=== PATIENT | female | born 1985 | race Two or more races ===

== ENCOUNTER → 2016-03-17 | Outpatient (CLI) | payer OTHER ==
--- NOTE | 2016-03-17 11:47 | US ---
EXAMINATION TYPE: US pelvic complete DATE OF EXAM: 03/17/2016 8:41 AM COMPARISON: CT scan abdomen and pelvis third December 2015 CLINICAL HISTORY: uterine fibroids per patient; Pelvic pain with intercourse and intermittently durin g menses; ; tubal ligation, C section x 3; on oral contraceptives x 2 weeks TECHNIQUE: Transabdominal (TA) Date of LMP: 02/10/2016 EXAM MEASUREMENTS: Uterus: 10.2 x 7.9 x 4.8cm Endometrial Stripe: 1.3cm Right Ovary: 2.1 x 1.3 x 1.0cm Left Ovary: 3.1 x 1.7 x 1.8cm FINDINGS: Grayscale, color Doppler imaging performed of the uterus and ovaries. Spectral Doppler imaging perfor med of the ovaries. Vascular waveforms, color flow noted to the right ovary. 1. Uterus: Anteverted the myometrial echotexture is heterogeneous, hypoechoic foci are present, an d the largest at right myometrium = 2.6 x 2.6 x 2.4cm and noted as hypoechoic mixed mass with periphe ral color flow 2. Endometrium: thickness is wnl for day 36LMP 3. Right Ovary: small follicles; 4. Left Ovary: small follicles Spectral, color and waveform doppler imaging shows good arterial and venous flow within the ovaries ; there is no evidence for ovarian torsion. 5. Bilateral Adnexa: wnl 6. Posterior cul-de-sac: wnl as bowel noted peristalsing here IMPRESSION: Fibroid uterus. Normal Values: Uterine Length: < 10cm Endometrium: Proliferative (Day 6 ? 14): 4 ? 6mm Secretory (Day 15 ? 28): 7 ? 14mm Post Menopausal (and not symptomatic): up to 8mm Post Menopausal (with vaginal bleeding): upper limits <5mm Post Menopausal with HRT: upper limits 8 - 15mm Post Menopausal with tamoxifen: < 6mm (although 50% of those receiving tamoxifen have been reported t o have thickness >8mm)
== END | disposition home or self-care (01) ==
LOC: RADUSWWP 08:12
PROVIDERS: ATTEND Family Medicine
DX: D25.9 Leiomyoma of uterus, unspecified (principal); Z88.1 Allergy status to other antibiotic agents; Z88.8 Allergy status to other drugs, medicaments and biological substances
CPT/HCPCS: 76856

== ENCOUNTER 2016-08-19 20:48 | Emergency (ER) | payer OTHER ==
[2016-08-19 20:57] VITALS: BP 134/77; PULSE 85; RESP 16; TEMP 99.8
[2016-08-19 21:24] LABS: Appearance,Urine Clear (Clear); Bacteria,Urine Occasional /hpf; Bilirubin,Urine Negative (Negative); Glucose,Urine (UA) Negative (Negative); Ketones,Urine Negative (Negative); Leukocyte Esterase,Urine Small (Negative); Mucus,Urine Rare /hpf; Nitrite,Urine Negative (Negative); PH, Urine 5.5 (5.0-8.0); Particle Count 7473; Protein,Urine Negative (Negative); RBC,Urine 1 /hpf (0-5); Specific Gravity,Urine 1.017 (1.001-1.035); Squamous Epithelial Cell,Urine 1 /hpf (0-4); UA Billing (MACRO vs. MICRO) MICRO; Urobilinogen,Urine <2.0 mg/dL (<2.0); WBC,Urine 3 /hpf (0-5)
--- NOTE | 2016-08-19 21:45 | ED ---
Female Urogenital HPI - General Chief complaint: Urogenital Stated complaint: Abd Pain Time Seen by Provider: 08/19/16 21:04 Source: patient Mode of arrival: ambulatory Limitations: no limitations - History of Present Illness Initial comments: 30-year-old female presents to emergency Department chief complaint of concern that she is possibly . Patient ports that she had a tubal ligation many years ago. Patient reports she's had symptoms of including breast enlargement, abdominal distention, mild swelling in her feet and feeling nauseated in the morning. Patient reports that her last menstrual cycle was 4 weeks ago. Patient states that she did not take any urine test. Patient denies any dysuria or vaginal discharge. She denies any fever or chills , vomiting or changes in bowel movements. Patient denies any abdominal tenderness. - Related Data Home Medications Medication Instructions Recorded Confirmed Albuterol Sulfate [Ventolin HFA] 1 puff INHALATION RT-QID PRN 12/08/15 08/19/16 Montelukast Sodium [Montelukast 10 mg PO DAILY 12/08/15 08/19/16 Sodium] Multivitamins, Thera [Multivitamin 1 tab PO DAILY 08/19/16 08/19/16 (formulary)] Allergies Allergy/AdvReac Type Severity Reaction Status Date / Time acetaminophen [From Tylenol] Allergy Swelling Verified 08/19/16 21:50 sulfamethoxazole Allergy Rash/Hives Verified 08/19/16 21:50 [From Bactrim] trimethoprim [From Bactrim] Allergy Rash/Hives Verified 08/19/16 21:50 Review of Systems ROS Statement: Those systems with pertinent positive or pertinent negative responses have been documented in the HPI. ROS Other: All systems not noted in ROS Statement are negative. Past Medical History Past Medical History: Asthma History of Any Multi-Drug Resistant Organisms: None Reported Past Surgical History: Section, Orthopedic Surgery, Tubal Ligation Additional Past Surgical History / Comment(s): skin graft Past Psychological History: Anxiety, Bipolar, PTSD Smoking Status: Former smoker Past Alcohol Use History: None Reported Past Drug Use History: None Reported General Exam - General Exam Comments Initial Comments: Well-appearing 30-year-old female. No acute distress. Limitations: no limitations General appearance: alert, in no apparent distress Head exam: Present: atraumatic, normocephalic, normal inspection Eye exam: Present: normal appearance, PERRL, EOMI. Absent: scleral icterus, conjunctival injection, periorbital swelling ENT exam: Present: normal exam, mucous membranes moist Neck exam: Present: normal inspection. Absent: tenderness, meningismus, lymphadenopathy Respiratory exam: Present: normal lung sounds bilaterally. Absent: respiratory distress, wheezes, rales, rhonchi, stridor Cardiovascular Exam: Present: regular rate, normal rhythm, normal heart sounds. Absent: systolic murmur, diastolic murmur, rubs, gallop, clicks GI/Abdominal exam: Present: soft, normal bowel sounds. Absent: distended, tenderness, guarding, rebound, rigid Extremities exam: Present: normal inspection, full ROM, normal capillary refill. Absent: tenderness, pedal edema, joint swelling, calf tenderness Back exam: Present: normal inspection Neurological exam: Present: alert, oriented X3, CN II-XII intact Psychiatric exam: Present: normal affect, normal mood Skin exam: Present: warm, dry, intact, normal color. Absent: rash Course Vital Signs 08/19/16 20:54 Temperature 99.8 F H Pulse Rate 85 Respiratory 16 Rate Blood Pressure 134/77 O2 Sat by Pulse 100 Oximetry Medical Decision Making - Medical Decision Making 30-year-old females concerned that she is possibly . She did have a history of tubal ligation many years ago. Patient states that symptoms of breast enlargement, abdominal enlargement. Patient reports last menstrual cycle was 3 weeks ago. She denies any abdominal tenderness. Physical exam is benign. Urinalysis and urine hCG obtained. Patient's urine hCG is negative. Also is negative for any acute process including UTI. Discussed the results with the patient. Patient states that she is still confused. Discussed that she should follow-up with her primary care provider if symptoms continue to persist. Discussed that she is likely about to start her menstrual cycle due to the fluctuation and hormones she can have breast tenderness and bloating. Patient agrees to treatment plan will comply. Return parameters were discussed. - Lab Data Lab Results 08/19/16 08/19/16 Range/Units 21:10 21:10 Urine Color Yellow Urine Appearance Clear (Clear) Urine pH 5.5 (5.0-8.0) Ur Specific [place] 1.017 (1.001-1.035) Urine Protein Negative (Negative) Urine Glucose (UA) Negative (Negative) Urine Ketones Negative (Negative) Urine Blood Negative (Negative) Urine Nitrite Negative (Negative) Urine Bilirubin Negative (Negative) Urine Urobilinogen <2.0 (<2.0) mg/dL Ur Leukocyte Esterase Small H (Negative) Urine RBC 1 (0-5) /hpf Urine WBC 3 (0-5) /hpf Ur Squamous Epith Cells 1 (0-4) /hpf Urine Bacteria Occasional H (None) /hpf Urine Mucus Rare H (None) /hpf Urine Yeast (Budding) Rare H (None) /hpf Urine HCG, Qual Not Detected (Not Detectd) Disposition Clinical Impression: Not currently Disposition: HOME SELF-CARE Condition: Good Additional Instructions: Follow-up with her primary care provider within the next 2-3 days. Rest, remain hydrated. Return to the emergency department if any alarming signs or symptoms occur. Referrals: Irasema Chandler MD [Primary Care Provider] - 1-2 days Time of Disposition: 21:44
== END 2016-08-19 21:54 | disposition home or self-care (01) ==
LOC: EC 20:48
DX: N62 Hypertrophy of breast (principal); M79.89 Other specified soft tissue disorders; R14.0 Abdominal distension (gaseous); R11.0 Nausea; J45.909 Unspecified asthma, uncomplicated; Z87.891 Personal history of nicotine dependence; Z79.899 Other long term (current) drug therapy; Z88.1 Allergy status to other antibiotic agents; Z88.6 Allergy status to analgesic agent; Z98.51 Tubal ligation status
CPT/HCPCS: 81001; 81025; 99284

== ENCOUNTER 2018-05-08 07:47 | Emergency (ER) | payer OTHER ==
[2018-05-08 07:51] VITALS: BP 128/74; PULSE 84; RESP 18; TEMP 98
[2018-05-08] MEDS ORDERED: PROPARACAINE 0.5% OPHTH DROPS 15 ML BTL RIGHT EYE STA (07:59)
[2018-05-08] MEDS ORDERED: TOBRAMYCIN 0.3% OPHTH DROPS 5 ML BTL RIGHT EYE STA (08:06)
--- NOTE | 2018-05-08 08:09 | ED ---
Eye Problem HPI - General Chief complaint: Eye Problems Stated complaint: Eye pain Time Seen by Provider: 05/08/18 07:54 Source: patient, RN notes reviewed Mode of arrival: ambulatory Limitations: no limitations - History of Present Illness Initial comments: 32-year-old female presented to emergency department for right eye irritation. Patient that she woke up with it's morning. She is not wearing glasses or contacts no blurred vision no pain with ocular movement. Patient states she just feels like something is in her eye. Patient's tetanus is up-to-date. Patient denies any discharge other than mild tearing. - Related Data Home Medications Medication Instructions Recorded Confirmed Albuterol Sulfate [Ventolin HFA] 1 puff INHALATION RT-QID PRN 12/08/15 05/08/18 Montelukast Sodium 10 mg PO HS 12/08/15 05/08/18 Multivitamins, Thera [Multivitamin 1 tab PO DAILY 08/19/16 05/08/18 (formulary)] Ipratropium-Albuterol Nebulize 3 ml INHALATION RT-DAILY PRN 05/08/18 05/08/18 [Duoneb 0.5 mg-3 mg/3 ml Soln] Allergies Allergy/AdvReac Type Severity Reaction Status Date / Time acetaminophen [From Tylenol] Allergy Swelling Verified 05/08/18 07:59 sulfamethoxazole Allergy Rash/Hives Verified 05/08/18 07:59 [From Bactrim] trimethoprim [From Bactrim] Allergy Rash/Hives Verified 05/08/18 07:59 Review of Systems ROS Statement: Those systems with pertinent positive or pertinent negative responses have been documented in the HPI. ROS Other: All systems not noted in ROS Statement are negative. Past Medical History Past Medical History: Asthma History of Any Multi-Drug Resistant Organisms: None Reported Past Surgical History: Section, Orthopedic Surgery, Tubal Ligation Additional Past Surgical History / Comment(s): skin graft Past Psychological History: No Psychological Hx Reported Smoking Status: Current every day smoker Past Alcohol Use History: None Reported Past Drug Use History: None Reported General Exam Limitations: no limitations General appearance: alert, in no apparent distress Head exam: Present: atraumatic, normocephalic, normal inspection Eye exam: Present: PERRL, EOMI, conjunctival injection (Mild right). Absent: normal appearance, scleral icterus, periorbital swelling Pupils: Present: other (Fluorescein dye uptake noted with Wood's lamp inthe sclera) ENT exam: Present: normal exam, normal oropharynx, mucous membranes moist Neck exam: Present: normal inspection. Absent: tenderness, meningismus, lymphadenopathy Respiratory exam: Present: normal lung sounds bilaterally. Absent: respiratory distress, wheezes, rales, rhonchi, stridor Cardiovascular Exam: Present: regular rate, normal rhythm, normal heart sounds. Absent: systolic murmur, diastolic murmur, rubs, gallop, clicks Course Vital Signs 05/08/18 07:49 Temperature 98 F Pulse Rate 84 Respiratory 18 Rate Blood Pressure 128/74 O2 Sat by Pulse 100 Oximetry Medical Decision Making - Medical Decision Making 32-year-old female presented for right eye irritation. She has small scleral abrasion will be given Tobrex eye drops and follow-up with ophthalmology return parameters were discussed. Disposition Clinical Impression: Abrasion of sclera of right eye Disposition: HOME SELF-CARE Condition: Stable Instructions (If sedation given, give patient instructions): Corneal Abrasion ( ED) Additional Instructions: Please return to the Emergency Department if symptoms worsen or any other concerns. Use eyedrops 1 drop to right eye every 4 hours for 7 days. Is patient prescribed a controlled substance at d/c from ED?: No Referrals: Irasema Chandler MD [Primary Care Provider] - 1-2 days Miguel Salazar MD [STAFF PHYSICIAN] - 1-2 days
== END 2018-05-08 08:16 | disposition home or self-care (01) ==
LOC: EC 07:47
DX: S05.01XA Injury of conjunctiva and corneal abrasion without foreign body, right eye, initial encounter (principal); J45.909 Unspecified asthma, uncomplicated; F17.200 Nicotine dependence, unspecified, uncomplicated; Z79.899 Other long term (current) drug therapy; Z88.6 Allergy status to analgesic agent; Z88.2 Allergy status to sulfonamides; Z88.1 Allergy status to other antibiotic agents; X58.XXXA Exposure to other specified factors, initial encounter
CPT/HCPCS: 99283

== ENCOUNTER 2018-07-11 20:42 | Emergency (ER) | payer OTHER ==
--- NOTE | 2018-07-11 22:23 | ED ---
General Adult HPI - General Source: patient, RN notes reviewed, old records reviewed Mode of arrival: ambulatory Limitations: no limitations <Andres Haas - Last Filed: 07/11/18 22:20> <Jacklyn Carrera - Last Filed: 07/12/18 04:19> - General Chief complaint: Abdominal Pain Stated complaint: lump on stomach Time Seen by Provider: 07/11/18 21:18 - History of Present Illness Initial comments: 32-year-old female patient past medical history of umbilical hernia presents to ED for pain and umbilical hernia. Patient currently does not have any pain. Patient does report that while exercising doing physical activity she has pain at the site. Patient was seen for this problem one week ago where she had a CT which displayed the umbilical hernia containing fat. Patient states that symptoms have not worsened since then, have remained the same. Patient denies any baseline abdominal pain. Patient denies all other complaints at this time. Systemic: Pt denies fatigue, myalgia, fever/chills, rash. Pt denies weakness, night sweats, weight loss. Neuro: Pt denies headache, visual disturbances, syncope or pre-syncope. HEENT: Pt denies ocular discharge or irritation, otalgia, rhinorrhea, pharyngitis or notable lymphadenopathy. Cardiopulmonary: Pt denies chest pain, SOB, heart palpitations, dyspnea on ex ertion. Abdominal/GI: Pt denies n/v/d. : Pt denies dysuria, burning w/ urination, frequency/urgency. Denies new onset urinary or bowel incontinence. MSK: Pt denies myalgia, loss of strength or function in extremities. Neuro: Pt denies new onset weakness, paresthesias. (Andres Haas) - Related Data Home Medications Medication Instructions Recorded Confirmed Albuterol Sulfate [Ventolin HFA] 2 puff INHALATION RT-QID PRN 12/08/15 07/11/18 Montelukast Sodium 10 mg PO HS 12/08/15 07/11/18 Multivitamins, Thera [Multivitamin 1 tab PO DAILY 08/19/16 07/11/18 (formulary)] Ibuprofen [Motrin] 800 mg PO Q8H PRN 07/11/18 07/11/18 Previous Rx's Medication Instructions Recorded Ibuprofen [Motrin] 600 mg PO Q6HR PRN #40 day 07/11/18 Allergies Allergy/AdvReac Type Severity Reaction Status Date / Time acetaminophen [From Tylenol] Allergy Swelling Verified 07/11/18 21:22 sulfamethoxazole Allergy Rash/Hives Verified 07/11/18 21:22 [From Bactrim] trimethoprim [From Bactrim] Allergy Rash/Hives Verified 07/11/18 21:22 Review of Systems ROS Other: All systems not noted in ROS Statement are negative. <Andres Haas - Last Filed: 07/11/18 22:20> ROS Other: All systems not noted in ROS Statement are negative. <Jacklyn Carrera - Last Filed: 07/12/18 04:19> ROS Statement: Those systems with pertinent positive or pertinent negative responses have been documented in the HPI. Past Medical History Past Medical History: Asthma History of Any Multi-Drug Resistant Organisms: None Reported Past Surgical History: Section, Orthopedic Surgery, Tubal Ligation Additional Past Surgical History / Comment(s): skin graft Past Psychological History: No Psychological Hx Reported Smoking Status: Current every day smoker Past Alcohol Use History: None Reported Past Drug Use History: None Reported <Andres Haas - Last Filed: 07/11/18 22:20> General Exam Limitations: no limitations <Andres Hasa - Last Filed: 07/11/18 22:20> - General Exam Comments Initial Comments: Constitutional: NAD, AOX3, Pt has pleasant affect. HEENT: NC/AT, trachea midline, neck supple, no lymphadenopathy. Posterior pharynx non erythematous, without exudates. External ears appear normal, without discharge. Mucous membranes moist. Eyes PERRLA, EOM intact. There is no scleral icterus. No pallor noted. Cardiopulmonary: RRR, no murmurs, rubs or gallops, no JVD noted. Lungs CTAB in anterior and posterior simons. No peripheral edema. Abdominal exam: Abdomen soft and non-distended. Abdomen non-tender to palpation in all 4 quadrants. Soft reducible hernia noted periumbilically. Bowel sounds active in LLQ. No hepatosplenomegaly. No ecchymosis Neuro: CN II-XII grossly intact. No nuchal rigidity. MSK: No posterior calf tenderness bilaterally, homans sign negative bilaterally. Posterior tibialis and radial pulse +2 bilaterally. Sensation intact in upper and lower extremities. Full active ROM in upper and lower extremities, 5/5 stregnth. (Andres Haas) Course Vital Signs 07/11/18 07/11/18 20:58 22:31 Temperature 98.4 F 98.0 F Pulse Rate 71 76 Respiratory 16 17 Rate Blood Pressure 120/74 126/88 O2 Sat by Pulse 100 100 Oximetry Medical Decision Making <Andres Haas - Last Filed: 07/11/18 22:20> <Jacklyn Carrera - Last Filed: 07/12/18 04:19> - Medical Decision Making 32-year-old female patient past medical history of umbilical hernia presents to ED for pain and umbilical hernia. Patient currently does not have any pain. Patient does report that while exercising doing physical activity she has pain at the site. Patient was seen for this problem one week ago where she had a CT which displayed the umbilical hernia containing fat. Patient states that symptoms have not worsened since then, have remained the same. Patient denies any baseline abdominal pain. Patient denies all other complaints at this time. Patient vital signs stable afebrile. Physical exam displayed: Abdomen soft and non-distended. Abdomen non-tender to palpation in all 4 quadrants. Soft reducible hernia noted periumbilically. Shared decision making conducted with patient. Patient does not wish to have reimaging of the abdomen. Patient was discharged with ibuprofen and surgery consult. Patient will return to ER if condition worsens in any way. Pt states that she is not . Case discussed with Dr. Carrera. (Andres Haas) I was available for consultation in the emergency department. The history and physical exam were done by the midlevel provider. I was consulted for this patient's care. I reviewed the case with the midlevel provider and based on their presentation of the patient, I agree with the assessment, medical decision making and plan of care as documented. Chart was dictated using [employer] dictation software. Attempts were made to correct any dictation errors however some typographical errors may persist. (Jacklyn Carrera) Disposition Is patient prescribed a controlled substance at d/c from ED?: No <Andres Haas - Last Filed: 07/11/18 22:20> <Jacklyn Carrera - Last Filed: 07/12/18 04:19> Clinical Impression: Umbilical hernia Disposition: HOME SELF-CARE Condition: Stable Instructions (If sedation given, give patient instructions): Umbilical Hernia (ED) Additional Instructions: Patient to adhere to previously discussed treatment plan and will take medica tion(s) as directed. Patient to follow up with PCP in 1-2 days. Patient to return to ED if symptoms do not improve. Follow up with surgical consult tomorrow. Return to ER immediately if condition worsens in any way. Prescriptions: Ibuprofen [Motrin] 600 mg PO Q6HR PRN #40 day PRN Reason: Pain Referrals: Irasema Chandler MD [Primary Care Provider] - 1-2 days Franco Gray MD [STAFF PHYSICIAN] - 1-2 days
--- NOTE | 2018-07-11 22:25 | ED ---
Medical Decision Making - Medical Decision Making added consult (Andres Haas) Disposition Is patient prescribed a controlled substance at d/c from ED?: No Clinical Impression: Umbilical hernia Disposition: HOME SELF-CARE Condition: Stable Instructions (If sedation given, give patient instructions): Umbilical Hernia (ED) Additional Instructions: Patient to adhere to previously discussed treatment plan and will take medication(s) as directed. Patient to follow up with PCP in 1-2 days. Patient to return to ED if symptoms do not improve. Follow up with surgical consult tomorrow. Return to ER immediately if condition worsens in any way. Prescriptions: Ibuprofen [Motrin] 600 mg PO Q6HR PRN #40 day PRN Reason: Pain Referrals: Irasema Chandler MD [Primary Care Provider] - 1-2 days Franco Gray MD [STAFF PHYSICIAN] - 1-2 days
[2018-07-11 22:32] VITALS: BP 126/88; PULSE 76; RESP 17; TEMP 98
== END 2018-07-11 22:32 | disposition home or self-care (01) ==
LOC: EC 20:42
DX: K42.9 Umbilical hernia without obstruction or gangrene (principal); J45.909 Unspecified asthma, uncomplicated; F17.200 Nicotine dependence, unspecified, uncomplicated; Z98.51 Tubal ligation status; Z98.890 Other specified postprocedural states; Z88.1 Allergy status to other antibiotic agents; Z88.2 Allergy status to sulfonamides; Z88.8 Allergy status to other drugs, medicaments and biological substances
CPT/HCPCS: 99284

== ENCOUNTER → 2019-09-22 | Outpatient (CLI) | payer OTHER ==
--- NOTE | 2019-09-22 14:55 | XR ---
EXAMINATION TYPE: XR cervical spine comp DATE OF EXAM: 09/22/2019 COMPARISON: None HISTORY: 33-year-old female Joleen fan by 4.2 TECHNIQUE: 5 views FINDINGS: No predental space widening or prevertebral soft tissue swelling. Mild endplate spondylosis C6-C7. Mi ld facet arthropathy lower cervical spine. No significant bony neuroforaminal narrowing on either janneth e. Normal odontoid view. Alignment is maintained. IMPRESSION: Mild spondylotic change particularly at C6-C7. No significant bony neuroforaminal narrowing on either side. Alignment is maintained.
--- NOTE | 2019-09-23 23:00 | CT ---
EXAMINATION TYPE: CT soft tissue neck w con DATE OF EXAM: 09/22/2019 COMPARISON: None HISTORY: 33-year-old female neck pain, cervical lymphadenopathy, midline mass at base of neck TECHNIQUE: Contiguous axial scanning of the soft tissues of the neck performed with IV Contrast, jyoti ent injected with 100 mL of Isovue 300. Coronal/sagittal reconstructions performed. CT DLP: 315.8 mGycm Automated exposure control for dose reduction was used. FINDINGS: Some residual thymic tissue in the anterior mediastinum. Visualized upper lungs are clear. Bovine con figuration to the aortic arch. The thyroid gland shows possible small 3 mm hypodense nodule in the right. Submandibular glands are satisfactory. The parotid glands are atrophic. Visualized intracranial structures, paranasal sinuses, orbits and globes, and mastoid air cells appea r clear. Nasopharynx is clear. Oropharynx is clear. The glottic and subglottic structures as well as the tracheal column appear clear. Epiglottis and prevertebral soft tissues are satisfactory. Borderline size 7 mm submental lymph node. Borderline sized right upper cervical station 2A lymph nod e measures 1.0 cm. Couple additional scattered prominent lymph nodes such as 9 mm short axis right st ation 3 lymph node on axial image 42. No cervical lymphadenopathy by CT size criteria. Bones: No osseous destructive process. IMPRESSION: A COUPLE PROMINENT BUT NONENLARGED RIGHT UPPER CERVICAL LYMPH NODES MEASURING UP TO 1.0 CM SHORT AXIS AND BORDERLINE SIZED 7 MM SUBMENTAL LYMPH NODE. PROBABLY REACTIVE/POST INFLAMMATORY. NO LYMPHADENOPA THY BY CT SIZE CRITERIA.
== END | disposition home or self-care (01) ==
LOC: RADCTMAIN 11:31
PROVIDERS: ATTEND Family Medicine
DX: M47.892 Other spondylosis, cervical region (principal); R59.0 Localized enlarged lymph nodes
CPT/HCPCS: 72050; 70491; Q9967

== ENCOUNTER 2020-06-19 18:52 | Emergency (ER) | payer OTHER ==
[2020-06-19 19:20] VITALS: TEMP 98.4
[2020-06-19 19:48] LABS: Amorphous Sediment,Urine Rare /hpf; Appearance,Urine Turbid (Clear); Bacteria,Urine Moderate /hpf; Bilirubin,Urine Negative (Negative); Blood,Urine Negative (Negative); Color,Urine Yellow; Glucose,Urine (UA) Negative (Negative); Ketones,Urine 3+ (Negative); Leukocyte Esterase,Urine Small (Negative); Mucus,Urine Many /hpf; Nitrite,Urine Negative (Negative); Protein,Urine 1+ (Negative); Specific Gravity,Urine 1.042 (1.001-1.035); Squamous Epithelial Cell,Urine 13 /hpf (0-4); WBC,Urine 1 /hpf (0-5)
[2020-06-19] MEDS ORDERED: SODIUM CHLORIDE 0.9% 1,000 ML IV ONE (21:28)
[2020-06-19 21:43] LABS: Basophils % (A) 0 %; Eosinophils # (A) 0.1 k/uL (0-0.7); Eosinophils % (A) 1 %; HCT 40.7 % (34.0-46.0); HGB 13.5 gm/dL (11.4-16.0); Lymphocytes # (A) 3.4 k/uL (1.0-4.8); Lymphocytes % (A) 33 %; MCH 29.6 pg (25.0-35.0); MCHC 33.2 g/dL (31.0-37.0); MCV 89.2 fL (80.0-100.0); Mean Platelet Volume 7.9; Monocytes # (A) 0.6 k/uL (0-1.0); Monocytes % (A) 5 %; Neutrophils # (A) 5.8 k/uL (1.3-7.7); Neutrophils % (A) 58 %; Platelet Count 209 k/uL (150-450); RBC 4.56 m/uL (3.80-5.40); RDW 13.2 % (11.5-15.5); WBC 10.1 k/uL (3.8-10.6)
[2020-06-19 22:05] LABS: ALT 45 U/L (4-34); AST 75 U/L (14-36); African American GFR (CKD) >90 (>60 ml/min/1.73 sqM); Albumin 4.9 g/dL (3.5-5.0); Alkaline Phosphatase 66 U/L (38-126); Anion Gap 10 mmol/L; Blood Urea Nitrogen 16 mg/dL (7-17); Carbon Dioxide 25 mmol/L (22-30); Chloride 103 mmol/L (98-107); Glucose 92 mg/dL (74-99); Lipase 66 U/L (23-300); Non-African American GFR(CKD) >90 (>60 ml/min/1.73 sqM); Potassium 3.8 mmol/L (3.5-5.1); Sodium 138 mmol/L (137-145); Total Bilirubin 0.6 mg/dL (0.2-1.3); Total Protein 7.9 g/dL (6.3-8.2)
--- NOTE | 2020-06-19 22:51 | CT ---
EXAMINATION TYPE: CT abdomen pelvis w con DATE OF EXAM: 06/19/2020 COMPARISON: 12/08/2015 HISTORY: PAIN CT DLP: 614.8 mGycm Automated exposure control for dose reduction was used. CONTRAST: Performed with IV Contrast, patient injected with 100 mL of Isovue 300. Images were obtained from the diaphragm to the floor the pelvis with IV contrast. The lung bases are clear. There is no pleural effusion. Heart size is normal. There is no pericardial effusion. Liver spleen stomach pancreas gallbladder appear normal. The bile ducts are not dilated. There is no adrenal mass. Kidneys show satisfactory contrast opacification. There is no hydronephrosi s. The ureters are not dilated. Delayed images show normal renal excretion. There is no retroperitone al adenopathy. There is some free fluid in the pelvis. Bladder distends smoothly. There is no evidence of a pelvic m ass. Uterus is small and appears retroverted. Appendix is posterior in the pelvis and appears normal. There is 2.8 cm cyst on the left ovary. There is no mesenteric edema. There is no ascites or free air. There is no bowel obstruction. There i s trace amount of fluid in the right paracolic gutter. Ascending colon shows no wall thickening. The lumbar vertebra have normal alignment. There is no compression fracture. Posterior elements are i ntact. The bony pelvis appears intact. The hip joints are intact. IMPRESSION: Small amount of low-density free fluid in the pelvis could be physiologic. Left ovarian cyst. Normal appendix.
[2020-06-19] MEDS ORDERED: cefTRIAXone IN SWFI 1,000 MG/10 ML SYRINGE IVP STA (23:00)
[2020-06-19] MEDS ORDERED: DOXYCYCLINE 100 MG CAP PO STA (23:00)
--- NOTE | 2020-06-19 23:27 | ED ---
General Adult HPI - General Chief complaint: Urogenital Stated complaint: Abd Pain Time Seen by Provider: 06/19/20 20:54 Source: patient Mode of arrival: ambulatory Limitations: no limitations - History of Present Illness Initial comments: 34-year-old female with a past medical history of asthma presents to the emergency room for a chief complaint of abdominal pain. Patient states that she has been having pelvic pain that worsens after sex. Patient reports that she was with a new sexual partner about a week ago and started having symptoms about 3 days ago. Denies any vaginal discharge. Thinks it could be related. However patient states she also has a lot of pressure in his abdomen. States she has not had a bowel movement for a few days. She says sometimes the pain is in the upper abdomen. No fevers. Patient reports she has a history of hysterectomy last year. Patient has no other complaints at this time including shortness of breath, chest pain, nausea or vomiting, headache, or visual changes. - Related Data Home Medications Medication Instructions Recorded Confirmed Montelukast Sodium 10 mg PO HS 12/08/15 06/19/20 Albuterol Sulfate [Proair Hfa] 2 puff INHALATION RT-Q4H PRN 06/19/20 06/19/20 Ascorbic Acid [Vitamin C] 1,000 mg PO DAILY 06/19/20 06/19/20 Ferrous Sulfate [Feosol] 325 mg PO DAILY 06/19/20 06/19/20 Fluticasone/Salmeterol 1 puff INHALATION RT-BID 06/19/20 06/19/20 [Fluticasone-Salmeterol 113-14] Ipratropium-Albuterol Nebulize 3 ml INHALATION RT-QID PRN 06/19/20 06/19/20 [Duoneb 0.5 mg-3 mg/3 ml Soln] Multivitamin [Multivitamins Adult 1 tab PO DAILY 06/19/20 06/19/20 Gummies] Previous Rx's Medication Instructions Recorded Doxycycline [Vibramycin] 100 mg PO BID 14 Days #28 capsule 06/19/20 Allergies Allergy/AdvReac Type Severity Reaction Status Date / Time acetaminophen [From Tylenol] Allergy Swelling Verified 06/19/20 21:33 sulfamethoxazole Allergy Rash/Hives Verified 06/19/20 21:33 [From Bactrim] trimethoprim [From Bactrim] Allergy Rash/Hives Verified 06/19/20 21:33 Review of Systems ROS Statement: Those systems with pertinent positive or pertinent negative responses have been documented in the HPI. ROS Other: All systems not noted in ROS Statement are negative. Past Medical History Past Medical History: Asthma History of Any Multi-Drug Resistant Organisms: None Reported Past Surgical History: Section, Orthopedic Surgery, Tubal Ligation Additional Past Surgical History / Comment(s): skin graft Past Psychological History: No Psychological Hx Reported Smoking Status: Never smoker Past Alcohol Use History: Occasional Past Drug Use History: None Reported General Exam Limitations: no limitations General appearance: alert, in no apparent distress Head exam: Present: atraumatic, normocephalic, normal inspection Eye exam: Present: normal appearance, PERRL, EOMI. Absent: scleral icterus, conjunctival injection, periorbital swelling ENT exam: Present: normal exam, mucous membranes moist Neck exam: Present: normal inspection. Absent: tenderness, meningismus, lymphadenopathy Respiratory exam: Present: normal lung sounds bilaterally. Absent: respiratory distress, wheezes, rales, rhonchi, stridor Cardiovascular Exam: Present: regular rate, normal rhythm, normal heart sounds. Absent: systolic murmur, diastolic murmur, rubs, gallop, clicks GI/Abdominal exam: Present: soft, normal bowel sounds. Absent: distended, tenderness, guarding, rebound, rigid External exam: Present: normal external exam. Absent: erythema, swelling, lesions, lacerations, ecchymosis Speculum exam: Present: vaginal discharge (Thick white vaginal discharge noted). Absent: normal speculum exam, erythema, cervical discharge, vaginal bleeding, foreign body, tissue, laceration By manual exam: Present: uterine tenderness. Absent: normal by manual exam, cervical motion tenderness, adnexal tenderness, adnexal mass, uterine enlargement Course Vital Signs 06/19/20 06/19/20 19:18 22:00 Temperature 98.4 F Pulse Rate 106 H 83 Respiratory 18 16 Rate Blood Pressure 131/93 115/77 O2 Sat by Pulse 98 99 Oximetry Medical Decision Making - Medical Decision Making Vitals are stable. CBC CMP unremarkable. Patient does have 3+ ketones in her urine and likely related to dehydration, she was given a liter of fluid. Abdominal exam nontender. Pelvic exam does reveal vaginal discharge. Trichomonas is negative. Given vague symptoms CT was obtained which shows a small amount of low density free fluid in the pelvis. Could be physiologic. She does have a left ovarian cyst noted. At this time patient will be treated empirically for gonorrhea chlamydia. She will follow up on results. She'll return here for any worsening symptoms. - Lab Data Result diagrams: 06/19/20 21:37 06/19/20 21:37 Lab Results 06/19/20 06/19/20 06/19/20 Range/Units 19:25 19:25 21:37 WBC 10.1 (3.8-10.6) k/uL RBC 4.56 (3.80-5.40) m/uL Hgb 13.5 (11.4-16.0) gm/dL Hct 40.7 (34.0-46.0) % MCV 89.2 (80.0-100.0) fL MCH 29.6 (25.0-35.0) pg MCHC 33.2 (31.0-37.0) g/dL RDW 13.2 (11.5-15.5) % Plt Count 209 (150-450) k/uL MPV 7.9 Neutrophils % 58 % Lymphocytes % 33 % Monocytes % 5 % Eosinophils % 1 % Basophils % 0 % Neutrophils # 5.8 (1.3-7.7) k/uL Lymphocytes # 3.4 (1.0-4.8) k/uL Monocytes # 0.6 (0-1.0) k/uL Eosinophils # 0.1 (0-0.7) k/uL Basophils # 0.0 (0-0.2) k/uL Sodium (137-145) mmol/L Potassium (3.5-5.1) mmol/L Chloride (98-107) mmol/L Carbon Dioxide (22-30) mmol/L Anion Gap mmol/L BUN (7-17) mg/dL Creatinine (0.52-1.04) mg/dL Est GFR (CKD-EPI)AfAm (>60 ml/min/1.73 sqM) Est GFR (CKD-EPI)NonAf (>60 ml/min/1.73 sqM) Glucose (74-99) mg/dL Calcium (8.4-10.2) mg/dL Total Bilirubin (0.2-1.3) mg/dL AST (14-36) U/L ALT (4-34) U/L Alkaline Phosphatase (38-126) U/L Total Protein (6.3-8.2) g/dL Albumin (3.5-5.0) g/dL Lipase (23-300) U/L Urine Color Yellow Urine Appearance Turbid H (Clear) Urine pH 6.0 (5.0-8.0) Ur Specific [place] 1.042 H (1.001-1.035) Urine Protein 1+ H (Negative) Urine Glucose (UA) Negative (Negative) Urine Ketones 3+ H (Negative) Urine Blood Negative (Negative) Urine Nitrite Negative (Negative) Urine Bilirubin Negative (Negative) Urine Urobilinogen 3.0 (<2.0) mg/dL Ur Leukocyte Esterase Small H (Negative) Urine WBC 1 (0-5) /hpf Ur Squamous Epith Cells 13 H (0-4) /hpf Amorphous Sediment Rare H (None) /hpf Urine Bacteria Moderate H (None) /hpf Urine Mucus Many H (None) /hpf Urine HCG, Qual Not Detected (Not Detectd) Trichomonas Ag (Rapid) (Negative) 06/19/20 06/19/20 Range/Units 21:37 21:38 WBC (3.8-10.6) k/uL RBC (3.80-5.40) m/uL Hgb (11.4-16.0) gm/dL Hct (34.0-46.0) % MCV (80.0-100.0) fL MCH (25.0-35.0) pg MCHC (31.0-37.0) g/dL RDW (11.5-15.5) % Plt Count (150-450) k/uL MPV Neutrophils % % Lymphocytes % % Monocytes % % Eosinophils % % Basophils % % Neutrophils # (1.3-7.7) k/uL Lymphocytes # (1.0-4.8) k/uL Monocytes # (0-1.0) k/uL Eosinophils # (0-0.7) k/uL Basophils # (0-0.2) k/uL Sodium 138 (137-145) mmol/L Potassium 3.8 (3.5-5.1) mmol/L Chloride 103 (98-107) mmol/L Carbon Dioxide 25 (22-30) mmol/L Anion Gap 10 mmol/L BUN 16 (7-17) mg/dL Creatinine 0.72 (0.52-1.04) mg/dL Est GFR (CKD-EPI)AfAm >90 (>60 ml/min/1.73 sqM) Est GFR (CKD-EPI)NonAf >90 (>60 ml/min/1.73 sqM) Glucose 92 (74-99) mg/dL Calcium 11.0 H (8.4-10.2) mg/dL Total Bilirubin 0.6 (0.2-1.3) mg/dL AST 75 H (14-36) U/L ALT 45 H (4-34) U/L Alkaline Phosphatase 66 (38-126) U/L Total Protein 7.9 (6.3-8.2) g/dL Albumin 4.9 (3.5-5.0) g/dL Lipase 66 (23-300) U/L Urine Color Urine Appearance (Clear) Urine pH (5.0-8.0) Ur Specific [place] (1.001-1.035) Urine Protein (Negative) Urine Glucose (UA) (Negative) Urine Ketones (Negative) Urine Blood (Negative) Urine Nitrite (Negative) Urine Bilirubin (Negative) Urine Urobilinogen (<2.0) mg/dL Ur Leukocyte Esterase (Negative) Urine WBC (0-5) /hpf Ur Squamous Epith Cells (0-4) /hpf Amorphous Sediment (None) /hpf Urine Bacteria (None) /hpf Urine Mucus (None) /hpf Urine HCG, Qual (Not Detectd) Trichomonas Ag (Rapid) Negative (Negative) Disposition Clinical Impression: Abdominal pain, Ovarian cyst, Concern about STD in female without diagnosis Disposition: HOME SELF-CARE Condition: Good Instructions (If sedation given, give patient instructions): Ovarian Cyst (ED) Additional Instructions: Please take Motrin and Tylenol for pain. Take antibiotic as directed. This antibiotic could cause you to be more sensitive to sun Please follow-up with your doctor in one to 2 days. Return to the emergency room for any worsening symptoms. Prescriptions: Doxycycline [Vibramycin] 100 mg PO BID 14 Days #28 capsule Is patient prescribed a controlled substance at d/c from ED?: No Referrals: Irasema Chandler MD [Primary Care Provider] - 1-2 days Time of Disposition: 23:24
[2020-06-19 23:45] VITALS: BP 118/78; PULSE 72; RESP 15
[2020-06-23 13:05] LABS: C. trachomatis,PCR Negative (Neg,Equiv); Chlamydia trachomatis Source Urine; N. gonorrhoeae,PCR Negative (Neg,Equiv); Neisseria Source Urine
== END 2020-06-19 23:44 | disposition home or self-care (01) ==
LOC: EC 18:52
DX: Z11.3 Encounter for screening for infections with a predominantly sexual mode of transmission (principal); N83.202 Unspecified ovarian cyst, left side; J45.909 Unspecified asthma, uncomplicated; Z79.899 Other long term (current) drug therapy
CPT/HCPCS: 36415; 80053; 83690; 85025; 81001; 81025; 87808; 87491; 87591; 87070; 74177; 99284; 96374; 96361; J0696; Q9967; 83036

== ENCOUNTER 2020-07-09 00:14 | Emergency (ER) | payer OTHER ==
[2020-07-09 00:24] VITALS: BP 129/93; PULSE 86; RESP 18; TEMP 98.3
[2020-07-09 00:53] LABS: Appearance,Urine Clear (Clear); Bilirubin,Urine Negative (Negative); Blood,Urine Negative (Negative); Color,Urine Light Yellow; Glucose,Urine (UA) Negative (Negative); Ketones,Urine Negative (Negative); Leukocyte Esterase,Urine Negative (Negative); Nitrite,Urine Negative (Negative); PH, Urine 5.5 (5.0-8.0); Protein,Urine Negative (Negative); Specific Gravity,Urine 1.007 (1.001-1.035); Urobilinogen,Urine <2.0 mg/dL (<2.0)
[2020-07-09 01:02] LABS: Basophils % (A) 1 %; Eosinophils # (A) 0.1 k/uL (0-0.7); Eosinophils % (A) 1 %; HCT 38.9 % (34.0-46.0); HGB 12.8 gm/dL (11.4-16.0); Lymphocytes # (A) 3.8 k/uL (1.0-4.8); Lymphocytes % (A) 48 %; MCH 29.8 pg (25.0-35.0); MCV 90.3 fL (80.0-100.0); Monocytes # (A) 0.3 k/uL (0-1.0); Monocytes % (A) 4 %; Neutrophils # (A) 3.5 k/uL (1.3-7.7); Neutrophils % (A) 45 %; Platelet Count 184 k/uL (150-450); RBC 4.31 m/uL (3.80-5.40); RDW 13.2 % (11.5-15.5)
[2020-07-09 01:20] LABS: ALT 23 U/L (4-34); AST 34 U/L (14-36); African American GFR (CKD) >90 (>60 ml/min/1.73 sqM); Albumin 4.7 g/dL (3.5-5.0); Alkaline Phosphatase 51 U/L (38-126); Amylase 70 U/L (30-110); Anion Gap 8 mmol/L; Blood Urea Nitrogen 10 mg/dL (7-17); C Reactive Protein 0.7 mg/dL (<1.0); Calcium 9.6 mg/dL (8.4-10.2); Carbon Dioxide 27 mmol/L (22-30); Chloride 104 mmol/L (98-107); Glucose 110 mg/dL (74-99); Lipase 80 U/L (23-300); Non-African American GFR(CKD) >90 (>60 ml/min/1.73 sqM); Potassium 3.7 mmol/L (3.5-5.1); Sodium 139 mmol/L (137-145); Total Bilirubin 0.4 mg/dL (0.2-1.3); Total Protein 7.2 g/dL (6.3-8.2)
--- NOTE | 2020-07-09 01:27 | ED ---
General Adult HPI - General Chief complaint: Recheck/Abnormal Lab/Rx Stated complaint: Female Time Seen by Provider: 07/09/20 00:25 Source: patient Mode of arrival: ambulatory Limitations: no limitations - Related Data Home Medications Medication Instructions Recorded Confirmed Montelukast Sodium 10 mg PO HS 12/08/15 06/19/20 Albuterol Sulfate [Proair Hfa] 2 puff INHALATION RT-Q4H PRN 06/19/20 06/19/20 Ascorbic Acid [Vitamin C] 1,000 mg PO DAILY 06/19/20 06/19/20 Ferrous Sulfate [Feosol] 325 mg PO DAILY 06/19/20 06/19/20 Fluticasone/Salmeterol 1 puff INHALATION RT-BID 06/19/20 06/19/20 [Fluticasone-Salmeterol 113-14] Ipratropium-Albuterol Nebulize 3 ml INHALATION RT-QID PRN 06/19/20 06/19/20 [Duoneb 0.5 mg-3 mg/3 ml Soln] Multivitamin [Multivitamins Adult 1 tab PO DAILY 06/19/20 06/19/20 Gummies] Previous Rx's Medication Instructions Recorded Doxycycline [Vibramycin] 100 mg PO BID 14 Days #28 capsule 06/19/20 metroNIDAZOLE [Flagyl] 500 mg PO BID #14 tab 06/23/20 Allergies Allergy/AdvReac Type Severity Reaction Status Date / Time acetaminophen [From Tylenol] Allergy Swelling Verified 07/09/20 00:24 sulfamethoxazole Allergy Rash/Hives Verified 07/09/20 00:24 [From Bactrim] trimethoprim [From Bactrim] Allergy Rash/Hives Verified 07/09/20 00:24 Review of Systems ROS Statement: Those systems with pertinent positive or pertinent negative responses have been documented in the HPI. ROS Other: All systems not noted in ROS Statement are negative. Past Medical History Past Medical History: Asthma History of Any Multi-Drug Resistant Organisms: None Reported Past Surgical History: Section, Orthopedic Surgery, Tubal Ligation Additional Past Surgical History / Comment(s): skin graft Past Psychological History: No Psychological Hx Reported Smoking Status: Never smoker Past Alcohol Use History: Occasional Past Drug Use History: None Reported General Exam Limitations: no limitations Course Vital Signs 07/09/20 00:20 Temperature 98.3 F Pulse Rate 86 Respiratory 18 Rate Blood Pressure 129/93 O2 Sat by Pulse 98 Oximetry Medical Decision Making - Lab Data Result diagrams: 07/09/20 00:53 07/09/20 00:53 Lab Results 07/09/20 07/09/20 07/09/20 Range/Units 00:45 00:45 00:53 WBC 8.0 (3.8-10.6) k/uL RBC 4.31 (3.80-5.40) m/uL Hgb 12.8 (11.4-16.0) gm/dL Hct 38.9 (34.0-46.0) % MCV 90.3 (80.0-100.0) fL MCH 29.8 (25.0-35.0) pg MCHC 33.0 (31.0-37.0) g/dL RDW 13.2 (11.5-15.5) % Plt Count 184 (150-450) k/uL MPV 8.0 Neutrophils % 45 % Lymphocytes % 48 % Monocytes % 4 % Eosinophils % 1 % Basophils % 1 % Neutrophils # 3.5 (1.3-7.7) k/uL Lymphocytes # 3.8 (1.0-4.8) k/uL Monocytes # 0.3 (0-1.0) k/uL Eosinophils # 0.1 (0-0.7) k/uL Basophils # 0.0 (0-0.2) k/uL Sodium (137-145) mmol/L Potassium (3.5-5.1) mmol/L Chloride (98-107) mmol/L Carbon Dioxide (22-30) mmol/L Anion Gap mmol/L BUN (7-17) mg/dL Creatinine (0.52-1.04) mg/dL Est GFR (CKD-EPI)AfAm (>60 ml/min/1.73 sqM) Est GFR (CKD-EPI)NonAf (>60 ml/min/1.73 sqM) Glucose (74-99) mg/dL Calcium (8.4-10.2) mg/dL Total Bilirubin (0.2-1.3) mg/dL AST (14-36) U/L ALT (4-34) U/L Alkaline Phosphatase (38-126) U/L C-Reactive Protein (<1.0) mg/dL Total Protein (6.3-8.2) g/dL Albumin (3.5-5.0) g/dL Amylase (30-110) U/L Lipase (23-300) U/L Urine Color Light Yellow Urine Appearance Clear (Clear) Urine pH 5.5 (5.0-8.0) Ur Specific [place] 1.007 (1.001-1.035) Urine Protein Negative (Negative) Urine Glucose (UA) Negative (Negative) Urine Ketones Negative (Negative) Urine Blood Negative (Negative) Urine Nitrite Negative (Negative) Urine Bilirubin Negative (Negative) Urine Urobilinogen <2.0 (<2.0) mg/dL Ur Leukocyte Esterase Negative (Negative) Urine HCG, Qual Not Detected (Not Detectd) 07/09/20 Range/Units 00:53 WBC (3.8-10.6) k/uL RBC (3.80-5.40) m/uL Hgb (11.4-16.0) gm/dL Hct (34.0-46.0) % MCV (80.0-100.0) fL MCH (25.0-35.0) pg MCHC (31.0-37.0) g/dL RDW (11.5-15.5) % Plt Count (150-450) k/uL MPV Neutrophils % % Lymphocytes % % Monocytes % % Eosinophils % % Basophils % % Neutrophils # (1.3-7.7) k/uL Lymphocytes # (1.0-4.8) k/uL Monocytes # (0-1.0) k/uL Eosinophils # (0-0.7) k/uL Basophils # (0-0.2) k/uL Sodium 139 (137-145) mmol/L Potassium 3.7 (3.5-5.1) mmol/L Chloride 104 (98-107) mmol/L Carbon Dioxide 27 (22-30) mmol/L Anion Gap 8 mmol/L BUN 10 (7-17) mg/dL Creatinine 0.70 (0.52-1.04) mg/dL Est GFR (CKD-EPI)AfAm >90 (>60 ml/min/1.73 sqM) Est GFR (CKD-EPI)NonAf >90 (>60 ml/min/1.73 sqM) Glucose 110 H (74-99) mg/dL Calcium 9.6 (8.4-10.2) mg/dL Total Bilirubin 0.4 (0.2-1.3) mg/dL AST 34 (14-36) U/L ALT 23 (4-34) U/L Alkaline Phosphatase 51 (38-126) U/L C-Reactive Protein 0.7 (<1.0) mg/dL Total Protein 7.2 (6.3-8.2) g/dL Albumin 4.7 (3.5-5.0) g/dL Amylase 70 (30-110) U/L Lipase 80 (23-300) U/L Urine Color Urine Appearance (Clear) Urine pH (5.0-8.0) Ur Specific [place] (1.001-1.035) Urine Protein (Negative) Urine Glucose (UA) (Negative) Urine Ketones (Negative) Urine Blood (Negative) Urine Nitrite (Negative) Urine Bilirubin (Negative) Urine Urobilinogen (<2.0) mg/dL Ur Leukocyte Esterase (Negative) Urine HCG, Qual (Not Detectd) Disposition Clinical Impression: Constipation Disposition: HOME SELF-CARE Condition: Good Is patient prescribed a controlled substance at d/c from ED?: No Referrals: Irasema Chandler MD [Primary Care Provider] - 1-2 days
[2020-07-09] MEDS ORDERED: MAGNESIUM CITRATE 296 ML BOTTLE PO ONE (01:28)
== END 2020-07-09 01:51 | disposition home or self-care (01) ==
LOC: EC 00:14
DX: K59.00 Constipation, unspecified (principal); J45.909 Unspecified asthma, uncomplicated; Z98.51 Tubal ligation status
CPT/HCPCS: 36415; 80053; 81003; 81025; 82150; 83690; 85025; 86140; 99283

== ENCOUNTER 2020-07-09 13:36 | Emergency (ER) | payer OTHER ==
[2020-07-09 13:39] VITALS: BP 139/87; PULSE 79; RESP 16; TEMP 98
[2020-07-09] MEDS ORDERED: KETOROLAC 15 MG/ML 1 ML VIAL IVP STA (14:12)
[2020-07-09] MEDS ORDERED: SODIUM CHLORIDE 0.9% 1,000 ML IV STA (14:12)
--- NOTE | 2020-07-09 14:18 | ED ---
Abdominal Pain HPI - General Chief Complaint: Abdominal Pain Stated Complaint: back, abdominal pain Time Seen by Provider: 07/09/20 13:50 Source: patient, RN notes reviewed Mode of arrival: ambulatory Limitations: no limitations - History of Present Illness Initial Comments: Patient is a 34-year-old female that presents to emergency department complaini ng of abdominal pain. She was recently seen in the ER last night and discharge this morning with constipation. She notes that the pain has not gone away and it's in her right side of her abdomen and her back. She notes that she does follow-up with [facility] for ovarian cyst issues. She notes that the pain is a 6 out of 10 constant with no relief from anything. She did not appear to be in any distress or pain while sitting up in bed during the exam interview. He denied any chest pain shortness breath headache nausea vomiting diarrhea constipation fever fatigue chills. - Related Data Home Medications Medication Instructions Recorded Confirmed Montelukast Sodium 10 mg PO HS 12/08/15 07/09/20 Albuterol Sulfate [Proair Hfa] 2 puff INHALATION RT-Q4H PRN 06/19/20 07/09/20 Fluticasone/Salmeterol 1 puff INHALATION RT-BID 06/19/20 07/09/20 [Fluticasone-Salmeterol 113-14] Ipratropium-Albuterol Nebulize 3 ml INHALATION RT-QID PRN 06/19/20 07/09/20 [Duoneb 0.5 mg-3 mg/3 ml Soln] Multivitamin [Multivitamins Adult 2 tab PO DAILY 06/19/20 07/09/20 Gummies] Xolair (Unknown Dose) 1 dose SQ QMONTHLY 07/09/20 07/09/20 Allergies Allergy/AdvReac Type Severity Reaction Status Date / Time acetaminophen [From Tylenol] Allergy Swelling Verified 07/09/20 14:10 sulfamethoxazole Allergy Rash/Hives Verified 07/09/20 14:10 [From Bactrim] trimethoprim [From Bactrim] Allergy Rash/Hives Verified 07/09/20 14:10 Review of Systems ROS Statement: Those systems with pertinent positive or pertinent negative responses have been documented in the HPI. ROS Other: All systems not noted in ROS Statement are negative. Past Medical History Past Medical History: Asthma History of Any Multi-Drug Resistant Organisms: None Reported Past Surgical History: Section, Orthopedic Surgery, Tubal Ligation Additional Past Surgical History / Comment(s): skin graft Past Psychological History: No Psychological Hx Reported Smoking Status: Never smoker Past Alcohol Use History: Occasional Past Drug Use History: None Reported General Exam Limitations: no limitations Head exam: Present: atraumatic, normocephalic, normal inspection Eye exam: Present: normal appearance, PERRL, EOMI. Absent: scleral icterus, conjunctival injection, periorbital swelling Neck exam: Present: normal inspection Respiratory exam: Present: normal lung sounds bilaterally. Absent: respiratory distress, wheezes, rales, rhonchi, stridor Cardiovascular Exam: Present: regular rate, normal rhythm, normal heart sounds. Absent: systolic murmur, diastolic murmur, rubs, gallop, clicks GI/Abdominal exam: Present: soft, normal bowel sounds, other (Discomfort on pa lpation to the right side of the abdomen no specific point tenderness.). Absent: distended, tenderness, guarding, rebound, rigid Extremities exam: Present: normal inspection, full ROM, normal capillary refill. Absent: tenderness, pedal edema, joint swelling, calf tenderness Neurological exam: Present: alert, oriented X3, CN II-XII intact Psychiatric exam: Present: normal affect, normal mood Skin exam: Present: warm, dry, intact, normal color. Absent: rash Course Vital Signs 07/09/20 13:37 Temperature 98.0 F Pulse Rate 79 Respiratory 16 Rate Blood Pressure 139/87 O2 Sat by Pulse 99 Oximetry Medical Decision Making - Medical Decision Making 34-year-old female complaining of right-sided abdominal pain with no point tenderness. Labs, KUB, 15 mg of Toradol, 1 L normal saline ordered. Patient would like to attempt an enema. Case discussed with Dr. Degroot, patient can discharge home. - Lab Data Result diagrams: 07/09/20 14:33 07/09/20 14:33 Lab Results 07/09/20 07/09/20 07/09/20 Range/Units 13:17 14:33 14:33 WBC 5.2 (3.8-10.6) k/uL RBC 4.33 (3.80-5.40) m/uL Hgb 13.0 (11.4-16.0) gm/dL Hct 38.8 (34.0-46.0) % MCV 89.4 (80.0-100.0) fL MCH 29.9 (25.0-35.0) pg MCHC 33.5 (31.0-37.0) g/dL RDW 13.1 (11.5-15.5) % Plt Count 160 (150-450) k/uL MPV 8.1 Neutrophils % (Manual) 48 % Lymphocytes % (Manual) 49 % Monocytes % (Manual) 2 % Eosinophils % (Manual) 1 % Neutrophils # (Manual) 2.50 (1.3-7.7) k/uL Lymphocytes # (Manual) 2.55 (1.0-4.8) k/uL Monocytes # (Manual) 0.10 (0-1.0) k/uL Eosinophils # (Manual) 0.05 (0-0.7) k/uL Nucleated RBCs 0 (0-0) /100 WBC Manual Slide Review Performed Sodium 139 (137-145) mmol/L Potassium 4.5 (3.5-5.1) mmol/L Chloride 103 (98-107) mmol/L Carbon Dioxide 30 (22-30) mmol/L Anion Gap 6 mmol/L BUN 7 (7-17) mg/dL Creatinine 0.71 (0.52-1.04) mg/dL Est GFR (CKD-EPI)AfAm >90 (>60 ml/min/1.73 sqM) Est GFR (CKD-EPI)NonAf >90 (>60 ml/min/1.73 sqM) Glucose 82 (74-99) mg/dL Calcium 9.7 (8.4-10.2) mg/dL Total Bilirubin 0.5 (0.2-1.3) mg/dL AST 34 (14-36) U/L ALT 22 (4-34) U/L Alkaline Phosphatase 46 (38-126) U/L Total Protein 6.9 (6.3-8.2) g/dL Albumin 4.5 (3.5-5.0) g/dL Amylase 65 (30-110) U/L Lipase 57 (23-300) U/L Urine Color Colorless Urine Appearance Clear (Clear) Urine pH 8.0 (5.0-8.0) Ur Specific [place] 1.004 (1.001-1.035) Urine Protein Negative (Negative) Urine Glucose (UA) Negative (Negative) Urine Ketones Negative (Negative) Urine Blood Negative (Negative) Urine Nitrite Negative (Negative) Urine Bilirubin Negative (Negative) Urine Urobilinogen <2.0 (<2.0) mg/dL Ur Leukocyte Esterase Negative (Negative) - Radiology Data Radiology results: report reviewed, image reviewed KUB: Nonspecific bowel gas pattern Disposition Clinical Impression: Constipation, Abdominal pain Disposition: HOME SELF-CARE Condition: Stable Instructions (If sedation given, give patient instructions): Abdominal Pain (ED) Additional Instructions: Please return to the Emergency Department if symptoms worsen or any other concerns. Follow-up primary care in 3-5 days. Continue to increase dietary fiber and oral fluids to help bowels properly. And by [id number] stool softeners and laxatives to help with movements. Is patient prescribed a controlled substance at d/c from ED?: No Referrals: Irasema Chandler MD [Primary Care Provider] - 1-2 days Time of Disposition: 15:30
[2020-07-09 14:27] LABS: Appearance,Urine Clear (Clear); Bilirubin,Urine Negative (Negative); Blood,Urine Negative (Negative); Color,Urine Colorless; Glucose,Urine (UA) Negative (Negative); Ketones,Urine Negative (Negative); Leukocyte Esterase,Urine Negative (Negative); Nitrite,Urine Negative (Negative); Protein,Urine Negative (Negative); Specific Gravity,Urine 1.004 (1.001-1.035); Urobilinogen,Urine <2.0 mg/dL (<2.0)
[2020-07-09 14:52] LABS: HCT 38.8 % (34.0-46.0); MCH 29.9 pg (25.0-35.0); MCHC 33.5 g/dL (31.0-37.0); MCV 89.4 fL (80.0-100.0); Mean Platelet Volume 8.1; Platelet Count 160 k/uL (150-450); RBC 4.33 m/uL (3.80-5.40); RDW 13.1 % (11.5-15.5); WBC 5.2 k/uL (3.8-10.6)
[2020-07-09 14:54] LABS: ALT 22 U/L (4-34); AST 34 U/L (14-36); African American GFR (CKD) >90 (>60 ml/min/1.73 sqM); Albumin 4.5 g/dL (3.5-5.0); Alkaline Phosphatase 46 U/L (38-126); Amylase 65 U/L (30-110); Anion Gap 6 mmol/L; Blood Urea Nitrogen 7 mg/dL (7-17); Calcium 9.7 mg/dL (8.4-10.2); Carbon Dioxide 30 mmol/L (22-30); Chloride 103 mmol/L (98-107); Glucose 82 mg/dL (74-99); Lipase 57 U/L (23-300); Non-African American GFR(CKD) >90 (>60 ml/min/1.73 sqM); Potassium 4.5 mmol/L (3.5-5.1); Sodium 139 mmol/L (137-145); Total Bilirubin 0.5 mg/dL (0.2-1.3); Total Protein 6.9 g/dL (6.3-8.2)
--- NOTE | 2020-07-09 14:56 | XR ---
EXAMINATION TYPE: XR KUB DATE OF EXAM: 07/09/2020 2:48 PM CLINICAL HISTORY: Abdominal pain. Right flank pain with nausea. TECHNIQUE: Upright images of the abdomen and pelvis were obtained COMPARISON: 09/17/2014. FINDINGS: Scattered gas is seen in non-distended small bowel loops. Gas and fecal material is seen in non-distended colon. There is no visceromegaly, pneumoperitoneum, or abnormal calcification apprecia jose j. The right interpolar and lower polar renal shadow is obscured by overlying bowel gas. The lung b ases are clear. The osseous structures are intact. IMPRESSION: Nonspecific bowel gas pattern.
[2020-07-09 15:12] LABS: Eosinophils # (M) 0.05 k/uL (0-0.7); Lymphocytes # (M) 2.55 k/uL (1.0-4.8); Neutrophils % (M) 48 %; Nucleated Red Blood Cells 0 /100 WBC (0-0); Total Cells Counted 100
[2020-07-09] MEDS ORDERED: NA PHOS,M-B/NA PHOS,DI-BA 133 ML ENEMA RECTAL STA (15:19)
== END 2020-07-09 16:34 | disposition home or self-care (01) ==
LOC: EC 13:36
DX: K59.00 Constipation, unspecified (principal); J45.909 Unspecified asthma, uncomplicated; Z79.51 Long term (current) use of inhaled steroids
CPT/HCPCS: 99284 ×2; 96374 ×2; 96361 ×2; 99283; 36415; 80053; 82150; 83690; 85025; 86140; 81003; 81025; 74018; J1885

== ENCOUNTER 2020-07-13 22:03 | Emergency (ER) | payer OTHER ==
[2020-07-13 22:21] VITALS: RESP 18; TEMP 98.4
[2020-07-13 23:33] LABS: Appearance,Urine Clear (Clear); Bilirubin,Urine Negative (Negative); Blood,Urine Negative (Negative); Color,Urine Light Yellow; Glucose,Urine (UA) Negative (Negative); Ketones,Urine Negative (Negative); Leukocyte Esterase,Urine Negative (Negative); Nitrite,Urine Negative (Negative); PH, Urine 5.5 (5.0-8.0); Protein,Urine Negative (Negative); Specific Gravity,Urine 1.007 (1.001-1.035); Urobilinogen,Urine <2.0 mg/dL (<2.0)
--- NOTE | 2020-07-13 23:46 | XR ---
EXAMINATION TYPE: XR KUB DATE OF EXAM: 07/13/2020 COMPARISON: 07/09/2020 HISTORY: Constipation TECHNIQUE: 2 views upright FINDINGS: There is no sign of intestinal obstruction or pneumoperitoneum. Fecal pattern is normal. Th ere is no evidence of a mass. There are no pathologic calcifications over the kidneys. Bony structure s are intact. IMPRESSION: Nonacute abdomen. No adverse change.
--- NOTE | 2020-07-14 00:56 | ED ---
General Adult HPI - General Chief complaint: Abdominal Pain Stated complaint: ABD pain Time Seen by Provider: 07/13/20 22:27 Source: patient Mode of arrival: ambulatory Limitations: no limitations - History of Present Illness Initial comments: 34 year-old female patient presents to the emergency department reporting abdominal discomfort and bloating associated with constipation. States that she has been having issues with constipation for the last couple of months. States that she has had two emergency visits for this, has had labs and CT done and co nstipation was the only finding. States that she saw her primary care physician two days ago and prescribed miralax and bentyl. States she has been taking these for 2 days without relief. States she did have one small hard bowel movement today. She denies any fever or chills. Denies any urinary symptoms. Denies any black or bloody stools. Denies any nausea or vomiting. States she is drinking a lot of fluids. Reports no appetite. - Related Data Home Medications Medication Instructions Recorded Confirmed Montelukast Sodium 10 mg PO HS 12/08/15 07/13/20 Albuterol Sulfate [Proair Hfa] 2 puff INHALATION RT-Q4H PRN 06/19/20 07/13/20 Fluticasone/Salmeterol 1 puff INHALATION RT-BID 06/19/20 07/13/20 [Fluticasone-Salmeterol 113-14] Ipratropium-Albuterol Nebulize 3 ml INHALATION RT-QID PRN 06/19/20 07/13/20 [Duoneb 0.5 mg-3 mg/3 ml Soln] Xolair (Unknown Dose) 1 dose SQ QMONTHLY 07/09/20 07/13/20 Dicyclomine [Bentyl] 20 mg PO DAILY PRN 07/13/20 07/13/20 Allergies Allergy/AdvReac Type Severity Reaction Status Date / Time acetaminophen [From Tylenol] Allergy Swelling Verified 07/13/20 23:22 sulfamethoxazole Allergy Rash/Hives Verified 07/13/20 23:22 [From Bactrim] trimethoprim [From Bactrim] Allergy Rash/Hives Verified 07/13/20 23:22 Review of Systems ROS Statement: Those systems with pertinent positive or pertinent negative responses have been documented in the HPI. ROS Other: All systems not noted in ROS Statement are negative. Past Medical History Past Medical History: Asthma History of Any Multi-Drug Resistant Organisms: None Reported Past Surgical History: Section, Orthopedic Surgery, Tubal Ligation Additional Past Surgical History / Comment(s): skin graft Past Psychological History: No Psychological Hx Reported Smoking Status: Never smoker Past Alcohol Use History: Occasional Past Drug Use History: None Reported General Exam Limitations: no limitations General appearance: alert, in no apparent distress ENT exam: Present: normal exam, normal oropharynx, mucous membranes moist Respiratory exam: Present: normal lung sounds bilaterally. Absent: respiratory distress, wheezes, rales, rhonchi, stridor Cardiovascular Exam: Present: regular rate, normal rhythm, normal heart sounds. Absent: systolic murmur, diastolic murmur, rubs, gallop, clicks GI/Abdominal exam: Present: soft, tenderness (generalized, mild), normal bowel sounds. Absent: distended, guarding, rebound, rigid Neurological exam: Present: alert, oriented X3, CN II-XII intact Psychiatric exam: Present: normal affect, normal mood Skin exam: Present: warm, dry, intact, normal color. Absent: rash Course Vital Signs 07/13/20 07/14/20 22:19 01:14 Temperature 98.4 F Pulse Rate 81 77 Respiratory 18 18 Rate Blood Pressure 126/88 127/90 O2 Sat by Pulse 100 96 Oximetry Medical Decision Making - Medical Decision Making 34-year-old female patient presents to the emergency department today for evaluation of abdominal discomfort and bloating. She is reporting constipation states she's had one to 2 small bowel movements over the last couple of weeks. Has been taking MiraLAX and Bentyl for the last 2 days. Physical examination did reveal somee mild generalized abdominal tenderness. Urinalysis was negative. X-ray was obtained, radiologist read as negative normal fecal pattern however review of the x-ray myself did show a large amount of stool in the rectum. We did attempt a milk and molasses enema. Patient states she had a very large bowel movement and she is feeling better. She'll be discharged to continue to MiraLAX and Bentyl as needed. She is instructed to follow-up with her primary care physician for recheck in 1-2 days. They are referring her to GI. Return parameters were discussed in detail. She verbalizes understanding and agrees with this plan. My attending is Dr. Niño. - Lab Data Lab Results 07/13/20 Range/Units 23:24 Urine Color Light Yellow Urine Appearance Clear (Clear) Urine pH 5.5 (5.0-8.0) Ur Specific [place] 1.007 (1.001-1.035) Urine Protein Negative (Negative) Urine Glucose (UA) Negative (Negative) Urine Ketones Negative (Negative) Urine Blood Negative (Negative) Urine Nitrite Negative (Negative) Urine Bilirubin Negative (Negative) Urine Urobilinogen <2.0 (<2.0) mg/dL Ur Leukocyte Esterase Negative (Negative) - Radiology Data Radiology results: report reviewed, image reviewed 2 views of the abdomen are obtained. Report was reviewed in its entirety. Impression by Dr. De Los Santos shows nonacute abdomen. No adverse change. Disposition Clinical Impression: Abdominal pain Disposition: HOME SELF-CARE Condition: Good Instructions (If sedation given, give patient instructions): Constipation (ED), Abdominal Pain (ED) Additional Instructions: Follow-up with the primary care physician for recheck in 1-2 days. Follow up with GI specialist as soon as possible. Return for any new, worsening, or concerning symptoms. Is patient prescribed a controlled substance at d/c from ED?: No Referrals: Irasema Chandler MD [Primary Care Provider] - 1-2 days Time of Disposition: 00:56
[2020-07-14 01:16] VITALS: BP 127/90; PULSE 77
== END 2020-07-14 01:16 | disposition home or self-care (01) ==
LOC: EC 22:03
DX: R10.84 Generalized abdominal pain (principal); J45.909 Unspecified asthma, uncomplicated; Z98.51 Tubal ligation status
CPT/HCPCS: 74018; 81003; 99284

== ENCOUNTER 2020-08-18 09:22 | Day surgery (SDC) | payer OTHER ==
[2020-08-14 13:35] VITALS: BMI 22.4
[~2020-08-18 09:22] MED LIST: LACTATED RINGERS 1,000 ML IV SCH; LIDOCAINE 1% (10MG/ML) FOR IV START INTRADERMA PRN
[2020-08-18 10:01] LABS: Glucose,Whole Blood 85 mg/dL (75-99)
[2020-08-18 10:05] VITALS: TEMP 98.9
[2020-08-18] MEDS ORDERED: PROPOFOL 10 MG/ML 20 ML VIAL IV ONE (10:34)
--- NOTE | 2020-08-18 11:09 | P.PCN ---
Date of Procedure: 08/18/20 Description of Procedure: BRIEF HISTORY: Patient is a 34-year-old female presented to the hospital for evaluation of chronic constipation and abdominal pain with colonoscopy. Patient has been seen in the ER with negative computed tomography scan of the abdomen. Symptoms of lower abdominal and right upper quadrant abdominal pain with reports of 2-3 small bowel movements and associated bloating, flatulence and belching. PROCEDURE PERFORMED: Colonoscopy with biopsy. PREOPERATIVE DIAGNOSIS: Chronic constipation, abdominal pain, no prior colonoscopy. ESTIMATED BLOOD LOSS: Minimal. IV sedation per Anesthesia. PROCEDURE: After informed consent was obtained, the patient, was brought into the endoscopy unit. IV sedation was administered by Anesthesia under continuous monitoring. Digital rectal examination was normal. Initially the Olympus CF-190 flexible video colonoscope was then inserted in the rectum, gradually advanced into the cecum without any difficulty. Careful examination was performed as the scope was gradually being withdrawn. Ileocecal valve and the appendiceal orifice were visualized and appeared normal. Prep was excellent. Mucosa of the cecum, ascending colon, transverse colon, descending colon, sigmoid colon, and rectum appeared normal, with biopsies taken of the right loss:. Retroflexion was performed in the rectum and no lesions were seen, low grade internal hemorrhoids. The patient tolerated the procedure well. IMPRESSION: Normal-appearing colon from rectum to cecum with biopsies taken of the right loss and left colon. Internal hemorrhoids. RECOMMENDATIONS: Findings of this examination were discussed with the patient and her family. Okay to resume diet. Okay to resume medications. Await pathology from biopsies. Follow up in the GI clinic for further evaluation and results of biopsies is scheduled.
[2020-08-18 11:21] VITALS: RESP 16
[2020-08-18 11:52] VITALS: BP 128/76; PULSE 60
== END 2020-08-18 12:11 | disposition home or self-care (01) ==
LOC: ORWHC2ENDO 09:22
PROVIDERS: ATTEND Internal Medicine
DX: K59.09 Other constipation (principal); R10.9 Unspecified abdominal pain; K64.8 Other hemorrhoids; Z72.0 Tobacco use; J45.909 Unspecified asthma, uncomplicated; Z79.1 Long term (current) use of non-steroidal anti-inflammatories (NSAID); Z79.899 Other long term (current) drug therapy; Z88.6 Allergy status to analgesic agent; Z88.2 Allergy status to sulfonamides; Z90.710 Acquired absence of both cervix and uterus
CPT/HCPCS: 88305; 45380; J2704

== ENCOUNTER 2020-12-02 10:21 | Emergency (ER) | payer OTHER ==
[2020-12-02 10:47] VITALS: TEMP 98.7
--- NOTE | 2020-12-02 12:56 | ED ---
URI HPI - General Chief Complaint: Upper Respiratory Infection Stated Complaint: Weak Time Seen by Provider: 12/02/20 11:30 Source: patient, RN notes reviewed Mode of arrival: ambulatory Limitations: no limitations - History of Present Illness Initial Comments: This is a 35-year-old female presents emergency Department with chief complaint of body aches, severe stress and anxiety issues. Patient states she just doesn't feel well. She went home from work and needed to be seen. She felt like she has been a pass out she came for a hot flushed feeling. She has no current chest pain she's had her heart racing when she was anxious but that did resolve. Denies any suicidal homicidal does not want medications for her anxiety she states she does not take meds because it messes with her chemicals. - Related Data Home Medications Medication Instructions Recorded Confirmed Montelukast Sodium 10 mg PO HS 12/08/15 08/14/20 Albuterol Sulfate [Proair Hfa] 2 puff INHALATION RT-Q4H PRN 06/19/20 08/14/20 Fluticasone/Salmeterol 1 puff INHALATION RT-BID 06/19/20 08/14/20 [Fluticasone-Salmeterol 113-14] Ipratropium-Albuterol Nebulize 3 ml INHALATION RT-QID PRN 06/19/20 08/14/20 [Duoneb 0.5 mg-3 mg/3 ml Soln] Xolair (Unknown Dose) 1 dose SQ QMONTHLY 07/09/20 08/14/20 Cholecalciferol [Vitamin D3 (25 25 mcg PO DAILY 08/14/20 08/14/20 Mcg = 1000 Iu)] Multivitamins, Thera [Multivitamin 1 tab PO DAILY 08/14/20 08/14/20 (formulary)] Allergies Allergy/AdvReac Type Severity Reaction Status Date / Time acetaminophen [From Tylenol] Allergy Swelling Verified 12/02/20 10:47 sulfamethoxazole Allergy Rash/Hives Verified 12/02/20 10:47 [From Bactrim] trimethoprim [From Bactrim] Allergy Rash/Hives Verified 12/02/20 10:47 Review of Systems ROS Statement: Those systems with pertinent positive or pertinent negative responses have been documented in the HPI. ROS Other: All systems not noted in ROS Statement are negative. Past Medical History Past Medical History: Asthma Additional Past Medical History / Comment(s): constipation History of Any Multi-Drug Resistant Organisms: None Reported Past Surgical History: Section, Hysterectomy, Tubal Ligation Additional Past Surgical History / Comment(s): skin graft Past Anesthesia/Blood Transfusion Reactions: Motion Sickness, Postoperative Nausea & Vomiting (PONV) Past Psychological History: Anxiety Smoking Status: Never smoker Past Alcohol Use History: Occasional Past Drug Use History: Marijuana General Exam Limitations: no limitations General appearance: alert, in no apparent distress Head exam: Present: atraumatic, normocephalic, normal inspection Eye exam: Present: normal appearance, PERRL, EOMI. Absent: scleral icterus, conjunctival injection, periorbital swelling ENT exam: Present: normal exam, normal oropharynx, mucous membranes moist Neck exam: Present: normal inspection, full ROM. Absent: tenderness, meningismus, lymphadenopathy Respiratory exam: Present: normal lung sounds bilaterally. Absent: respiratory distress, wheezes, rales, rhonchi, stridor Cardiovascular Exam: Present: regular rate, normal rhythm, normal heart sounds. Absent: systolic murmur, diastolic murmur, rubs, gallop, clicks Course Vital Signs 12/02/20 10:44 Temperature 98.7 F Pulse Rate 84 Respiratory 20 Rate Blood Pressure 117/77 O2 Sat by Pulse 99 Oximetry Medical Decision Making - Medical Decision Making Patient's COVID-19 is negative. Patient has increasing stress, anxiety issues. Patient is stable vitals are stable she has no complaints, be discharged. - Lab Data Lab Results 12/02/20 Range/Units 10:49 Coronavirus (PCR) Not Detected (Not Detectd) Disposition Clinical Impression: Acute upper respiratory infection, Myalgia Disposition: HOME SELF-CARE Condition: Stable Instructions (If sedation given, give patient instructions): Upper Respiratory Infection (ED) Additional Instructions: Please return to the Emergency Department if symptoms worsen or any other concerns. Is patient prescribed a controlled substance at d/c from ED?: No Referrals: Irasema Chandler MD [Primary Care Provider] - 1-2 days Time of Disposition: 13:05
[2020-12-02 13:12] VITALS: BP 125/86; PULSE 79; RESP 18
--- NOTE | 2020-12-02 13:15 | ED ---
Medical Decision Making - Lab Data Lab Results 12/02/20 Range/Units 10:49 Coronavirus (PCR) Not Detected (Not Detectd) Disposition Clinical Impression: Myalgia, Stress, Anxiety Disposition: HOME SELF-CARE Condition: Stable Instructions (If sedation given, give patient instructions): Stress (ED) Additional Instructions: Please return to the Emergency Department if symptoms worsen or any other concerns. Is patient prescribed a controlled substance at d/c from ED?: No Referrals: Irasema Chandler MD [Primary Care Provider] - 1-2 days
== END 2020-12-02 13:19 | disposition home or self-care (01) ==
LOC: EC 10:21
DX: J06.9 Acute upper respiratory infection, unspecified (principal); M79.10 Myalgia, unspecified site; F43.9 Reaction to severe stress, unspecified; F41.9 Anxiety disorder, unspecified; J45.909 Unspecified asthma, uncomplicated; Z20.822 Contact with and (suspected) exposure to COVID-19; Z88.6 Allergy status to analgesic agent; Z88.2 Allergy status to sulfonamides
CPT/HCPCS: 87635; 99283

== ENCOUNTER → 2021-01-27 | Outpatient (CLI) | payer OTHER | END | disposition home or self-care (01) | LOC: LABWHC1 09:02 | PROVIDERS: ATTEND Family Medicine | DX: Z20.822 Contact with and (suspected) exposure to COVID-19 (principal) | CPT/HCPCS: U0003; C9803 ==

== ENCOUNTER 2021-03-23 04:43 | Emergency (ER) | payer OTHER ==
[2021-03-23 05:21] VITALS: BP 121/90; PULSE 98; RESP 22; TEMP 97.1
--- NOTE | 2021-03-23 05:23 | ED ---
Headache HPI - General Chief Complaint: Headache Stated Complaint: Headache Time Seen by Provider: 03/23/21 04:45 Source: RN notes reviewed, old records reviewed Mode of arrival: ambulatory - History of Present Illness Initial Comments: This is a 35-year-old female presented today for evaluation of headache headache and fevers bodyaches and chills. Headache is her main complaint. Mild nausea no vomiting no real prior history of headache. Patient is unsure of her recent sick contact possibly coronavirus. Patient has history of asthma but no other significant medical complaints MD Complaint: headache, other (Bodyaches and pains) -: hour(s) Onset Description: gradual Location: frontal, temporal Severity: moderate Severity scale (1-10): 7 Quality: full, constant Consistency: constant Improves With: nothing Worsens With: none Context: recent URI Associated Symptoms: fever, nausea Other Symptoms: malaise Treatments Prior to Arrival: none - Related Data Home Medications Medication Instructions Recorded Confirmed Montelukast Sodium 10 mg PO HS 12/08/15 08/14/20 Albuterol Sulfate [Proair Hfa] 2 puff INHALATION RT-Q4H PRN 06/19/20 08/14/20 Fluticasone/Salmeterol 1 puff INHALATION RT-BID 06/19/20 08/14/20 [Fluticasone-Salmeterol 113-14] Ipratropium-Albuterol Nebulize 3 ml INHALATION RT-QID PRN 06/19/20 08/14/20 [Duoneb 0.5 mg-3 mg/3 ml Soln] Xolair (Unknown Dose) 1 dose SQ QMONTHLY 07/09/20 08/14/20 Cholecalciferol [Vitamin D3 (25 25 mcg PO DAILY 08/14/20 08/14/20 Mcg = 1000 Iu)] Multivitamins, Thera [Multivitamin 1 tab PO DAILY 08/14/20 08/14/20 (formulary)] Previous Rx's Medication Instructions Recorded Dexamethasone [Decadron] 6 mg PO DAILY #7 tablet 03/23/21 Allergies Allergy/AdvReac Type Severity Reaction Status Date / Time acetaminophen [From Tylenol] Allergy Swelling Verified 03/23/21 05:16 sulfamethoxazole Allergy Rash/Hives Verified 03/23/21 05:16 [From Bactrim] trimethoprim [From Bactrim] Allergy Rash/Hives Verified 03/23/21 05:16 Review of Systems ROS Statement: Those systems with pertinent positive or pertinent negative responses have been documented in the HPI. ROS Other: All systems not noted in ROS Statement are negative. Past Medical History Past Medical History: Asthma Additional Past Medical History / Comment(s): constipation History of Any Multi-Drug Resistant Organisms: None Reported Past Surgical History: Section, Hysterectomy, Tubal Ligation Additional Past Surgical History / Comment(s): skin graft Past Anesthesia/Blood Transfusion Reactions: Motion Sickness, Postoperative Nausea & Vomiting (PONV) Past Psychological History: Anxiety Smoking Status: Never smoker Past Alcohol Use History: Occasional Past Drug Use History: None Reported General Exam General appearance: alert, in no apparent distress Head exam: Present: atraumatic, normocephalic, normal inspection Eye exam: Present: normal appearance, PERRL, EOMI. Absent: scleral icterus, conjunctival injection, periorbital swelling ENT exam: Present: normal exam, mucous membranes moist Neck exam: Present: normal inspection. Absent: tenderness, meningismus, lymphadenopathy Respiratory exam: Present: normal lung sounds bilaterally. Absent: respiratory distress, wheezes, rales, rhonchi, stridor Cardiovascular Exam: Present: regular rate, normal rhythm, normal heart sounds. Absent: systolic murmur, diastolic murmur, rubs, gallop, clicks GI/Abdominal exam: Present: soft, normal bowel sounds. Absent: distended, tenderness, guarding, rebound, rigid Extremities exam: Present: normal inspection, full ROM, normal capillary refill. Absent: tenderness, pedal edema, joint swelling, calf tenderness Back exam: Present: normal inspection Neurological exam: Present: alert, oriented X3, CN II-XII intact Psychiatric exam: Present: normal affect, normal mood Skin exam: Present: warm, dry, intact, normal color. Absent: rash Course Vital Signs 03/23/21 05:16 Temperature 97.1 F L Pulse Rate 98 Respiratory 22 Rate Blood Pressure 121/90 O2 Sat by Pulse 100 Oximetry - Reevaluation(s) Reevaluation #1: 03/23/21 Medical record is reviewed Reevaluation #2: 03/23/21 Patient informed results and questions answered Reevaluation #3: 03/23/21 Patient no acute distress headache resolved Medical Decision Making - Medical Decision Making 35 female to the emergency department today. Patient presents today for evaluation of headache positive for coronavirus. No acute distress no breathing issues patient can be discharged home - Lab Data Lab Results 03/23/21 Range/Units 05:29 Coronavirus (PCR) Detected A (Not Detectd) Disposition Clinical Impression: Headache, Coronavirus infection, COVID-19 Disposition: HOME SELF-CARE Condition: Good Instructions (If sedation given, give patient instructions): Coronavirus Disease 2019 (COVID-19), Acute Headache (ED) Prescriptions: Dexamethasone [Decadron] 6 mg PO DAILY #7 tablet Is patient prescribed a controlled substance at d/c from ED?: No Referrals: Irasema Chandler MD [Primary Care Provider] - 1-2 days
[2021-03-23] MEDS ORDERED: DEXAMETHASONE SOD PHOSPHATE 10 MG/ML 1 ML VIAL IVP STA (05:41)
[2021-03-23] MEDS ORDERED: MORPHINE SULFATE 4 MG/ML SYRINGE IVP STA (05:41)
[2021-03-23] MEDS ORDERED: diphenhydrAMINE 50 MG/ML 1 ML VIAL IVP STA (05:41)
[2021-03-23] MEDS ORDERED: PROCHLORPERAZINE INJ 10 MG/2 ML VIAL IVP STA (05:41)
[2021-03-23] MEDS ORDERED: dexAMETHasone 2 MG TAB PO STA (06:00)
[2021-03-23] MEDS ORDERED: traMADol 50 MG TAB PO STA (06:00)
[2021-03-23] MEDS ORDERED: diphenhydrAMINE 50 MG CAP PO STA (06:00)
[2021-03-23] MEDS ORDERED: KETOROLAC 15 MG/ML 1 ML VIAL IM STA (06:00)
[2021-03-23] MEDS ORDERED: PROCHLORPERAZINE 10 MG TAB PO STA (06:00)
--- NOTE | 2021-03-23 06:24 | XR ---
EXAMINATION TYPE: XR chest 1V portable DATE OF EXAM: 03/23/2021 COMPARISON: 07/01/2014 HISTORY: Chest pain TECHNIQUE: Single view FINDINGS: Heart and mediastinum are normal. Lungs are clear. Diaphragm is normal. Bony thorax appears normal IMPRESSION: Normal chest. No change.
== END 2021-03-23 07:38 | disposition home or self-care (01) ==
LOC: EC 04:43
DX: U07.1 COVID-19 (principal); J45.909 Unspecified asthma, uncomplicated; Z88.6 Allergy status to analgesic agent; Z88.2 Allergy status to sulfonamides
CPT/HCPCS: 99284; 96374; 96375; 87635; 71045; 96372; S0183; J8540; J1885

== ENCOUNTER → 2021-05-11 | Outpatient (CLI) | payer OTHER ==
[2021-05-11 16:06] LABS: Basophils % (A) 0 %; Eosinophils # (A) 0.1 k/uL (0-0.7); Eosinophils % (A) 1 %; HCT 41.6 % (34.0-46.0); HGB 13.7 gm/dL (11.4-16.0); Lymphocytes # (A) 2.9 k/uL (1.0-4.8); Lymphocytes % (A) 34 %; MCH 31.6 pg (25.0-35.0); MCV 95.9 fL (80.0-100.0); Mean Platelet Volume 7.9; Monocytes # (A) 0.4 k/uL (0-1.0); Monocytes % (A) 4 %; Neutrophils # (A) 4.9 k/uL (1.3-7.7); Neutrophils % (A) 58 %; Platelet Count 198 k/uL (150-450); RBC 4.34 m/uL (3.80-5.40); RDW 12.6 % (11.5-15.5); WBC 8.5 k/uL (3.8-10.6)
[2021-05-11 16:22] LABS: Total Eosinophil Count 119 #EOS/uL (150-300)
[2021-05-13 13:59] LABS: Alternaria alternata IgE <0.10 kU/L; Aspergillus fumagatus IgE <0.10 kU/L; Birch IgE <0.10 kU/L; Cat Epith & Dander IgE <0.10 kU/L; Cladosporian herbarum IgE <0.10 kU/L; Cockroach IgE 0.26 kU/L; Dog Dander IgE <0.10 kU/L; Elm IgE <0.10 kU/L; Maple (Box Elder) IgE <0.10 kU/L; Oak IgE <0.10 kU/L; Ragweed,Common IgE <0.10 kU/L; Red Top (Bentgrass) IgE <0.10 kU/L
== END | disposition home or self-care (01) ==
LOC: LABWHC1 14:25
PROVIDERS: ATTEND Internal Medicine
DX: T78.40XA Allergy, unspecified, initial encounter (principal); J45.50 Severe persistent asthma, uncomplicated
CPT/HCPCS: 36415; 82785; 85008; 85025; 86003

== ENCOUNTER 2021-07-07 07:37 | Emergency (ER) | payer OTHER ==
[2021-07-07] MEDS ORDERED: CYCLOBENZAPRINE 5 MG TAB PO STA (07:57)
[2021-07-07] MEDS ORDERED: KETOROLAC 15 MG/ML 1 ML VIAL IM STA (07:57)
--- NOTE | 2021-07-07 08:05 | ED ---
General Adult HPI - General Chief complaint: Neck Pain/Injury Stated complaint: neck pain Time Seen by Provider: 07/07/21 07:42 Source: patient, RN notes reviewed, old records reviewed Mode of arrival: ambulatory Limitations: no limitations - History of Present Illness Initial comments: 35-year-old female who woke this morning with right-sided neck pain and pain with turning her head to the right. Patient states she slept in an upright position with her head against the headboard. When she woke this morning she had pain radiating to her right shoulder from the right side of her neck. Patient denies specific injury. Denies fever. - Related Data Home Medications Medication Instructions Recorded Confirmed Montelukast Sodium 10 mg PO HS 12/08/15 08/14/20 Albuterol Sulfate [Proair Hfa] 2 puff INHALATION RT-Q4H PRN 06/19/20 08/14/20 Fluticasone/Salmeterol 1 puff INHALATION RT-BID 06/19/20 08/14/20 [Fluticasone-Salmeterol 113-14] Ipratropium-Albuterol Nebulize 3 ml INHALATION RT-QID PRN 06/19/20 08/14/20 [Duoneb 0.5 mg-3 mg/3 ml Soln] Xolair (Unknown Dose) 1 dose SQ QMONTHLY 07/09/20 08/14/20 Cholecalciferol [Vitamin D3 (25 25 mcg PO DAILY 08/14/20 08/14/20 Mcg = 1000 Iu)] Multivitamins, Thera [Multivitamin 1 tab PO DAILY 08/14/20 08/14/20 (formulary)] Previous Rx's Medication Instructions Recorded Dexamethasone [Decadron] 6 mg PO DAILY #7 tablet 03/23/21 Cyclobenzaprine [Flexeril] 5 mg PO TID PRN #9 tablet 07/07/21 Ibuprofen [Motrin] 600 mg PO Q8HR PRN #24 tab 07/07/21 Allergies Allergy/AdvReac Type Severity Reaction Status Date / Time acetaminophen [From Tylenol] Allergy Swelling Verified 07/07/21 07:40 sulfamethoxazole Allergy Rash/Hives Verified 07/07/21 07:40 [From Bactrim] trimethoprim [From Bactrim] Allergy Rash/Hives Verified 07/07/21 07:40 Review of Systems ROS Statement: Those systems with pertinent positive or pertinent negative responses have been documented in the HPI. ROS Other: All systems not noted in ROS Statement are negative. Past Medical History Past Medical History: Asthma Additional Past Medical History / Comment(s): constipation History of Any Multi-Drug Resistant Organisms: None Reported Past Surgical History: Section, Hysterectomy, Tubal Ligation Additional Past Surgical History / Comment(s): skin graft Past Anesthesia/Blood Transfusion Reactions: Motion Sickness, Postoperative Nausea & Vomiting (PONV) Past Psychological History: Anxiety Smoking Status: Never smoker Past Alcohol Use History: Occasional Past Drug Use History: Marijuana General Exam Limitations: no limitations General appearance: alert, in no apparent distress Head exam: Present: atraumatic, normocephalic Eye exam: Present: normal appearance, PERRL ENT exam: Present: normal exam Neck exam: Present: tenderness, other (Tenderness and muscle spasm in the right trapezius muscle. There is no midline tenderness.). Absent: meningismus, full ROM Respiratory exam: Present: normal lung sounds bilaterally. Absent: respiratory distress, wheezes Cardiovascular Exam: Present: regular rate, normal rhythm GI/Abdominal exam: Present: soft, distended, tenderness Extremities exam: Present: normal inspection, normal capillary refill Neurological exam: Present: alert, oriented X3, CN II-XII intact. Absent: motor sensory deficit Psychiatric exam: Present: normal affect, normal mood Skin exam: Present: warm, dry, intact. Absent: cyanosis, diaphoretic Course Vital Signs 07/07/21 07/07/21 07/07/21 07:38 08:08 08:57 Temperature 98 F 97.3 F L Pulse Rate 88 85 85 Respiratory 20 18 20 Rate Blood Pressure 135/99 137/100 131/100 O2 Sat by Pulse 100 100 98 Oximetry - Reevaluation(s) Reevaluation #1: 07/07/21 09:03 Patient is mildly hypertensive in the emergency department. Since likely secondary to pain. She is informed of this and will follow with her primary care physician. Medical Decision Making - Medical Decision Making 35-year-old female with right-sided neck pain, spasm of the trapezius on the right. No injury. Patient slept in an upright position with her head against the headboard. She is otherwise well-appearing. 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 Normal sensation. Distal pulses are intact. She's given a muscle relaxer and anti-inflammatory the emergency department. She's given return parameters and will follow-up with her primary care physician. Disposition Clinical Impression: Acute torticollis, Strain of neck muscle Disposition: HOME SELF-CARE Condition: Good Instructions (If sedation given, give patient instructions): Cervical Strain (ED), Spasmodic Torticollis (ED) Prescriptions: Cyclobenzaprine [Flexeril] 5 mg PO TID PRN #9 tablet PRN Reason: Muscle Spasm Ibuprofen [Motrin] 600 mg PO Q8HR PRN #24 tab PRN Reason: Pain Is patient prescribed a controlled substance at d/c from ED?: No Referrals: Irasema Chandler MD [Primary Care Provider] - 1-2 days Time of Disposition: 08:04
[2021-07-07 08:58] VITALS: BP 131/100
[2021-07-07 09:30] VITALS: PULSE 84; RESP 18; TEMP 98.2
== END 2021-07-07 09:30 | disposition home or self-care (01) ==
LOC: EC 07:37
DX: S16.1XXA Strain of muscle, fascia and tendon at neck level, initial encounter (principal); M43.6 Torticollis; J45.909 Unspecified asthma, uncomplicated; Z88.6 Allergy status to analgesic agent; Z88.2 Allergy status to sulfonamides; Z88.1 Allergy status to other antibiotic agents; X58.XXXA Exposure to other specified factors, initial encounter
CPT/HCPCS: 99283; 96372; J1885

== ENCOUNTER 2022-01-03 10:13 | Emergency (ER) | payer OTHER ==
[2022-01-03 10:31] VITALS: RESP 18; TEMP 97.9
[2022-01-03] MEDS ORDERED: SODIUM CHLORIDE 0.9% 1,000 ML IV STA (10:52)
[2022-01-03] MEDS ORDERED: SODIUM CHLORIDE 0.9% 500 ML 500 ML IV STA (10:52)
[2022-01-03] MEDS ORDERED: KETOROLAC 15 MG/ML 1 ML VIAL IVP STA (10:52)
[2022-01-03] MEDS ORDERED: ONDANSETRON 4 MG/2 ML VIAL IVP STA (10:52)
[2022-01-03] MEDS ORDERED: DICYCLOMINE 10 MG/ML 2 ML AMP IM STA (10:53)
[2022-01-03 11:20] LABS: Basophils % (A) 0 %; Eosinophils # (A) 0.1 k/uL (0-0.7); Eosinophils % (A) 2 %; HCT 40.7 % (34.0-46.0); HGB 13.8 gm/dL (11.4-16.0); Lymphocytes # (A) 1.7 k/uL (1.0-4.8); Lymphocytes % (A) 27 %; MCH 30.7 pg (25.0-35.0); MCHC 33.8 g/dL (31.0-37.0); MCV 90.8 fL (80.0-100.0); Mean Platelet Volume 8.2; Monocytes # (A) 0.2 k/uL (0-1.0); Monocytes % (A) 4 %; Neutrophils # (A) 4.2 k/uL (1.3-7.7); Neutrophils % (A) 66 %; Platelet Count 206 k/uL (150-450); RBC 4.48 m/uL (3.80-5.40); WBC 6.4 k/uL (3.8-10.6)
[2022-01-03 11:34] LABS: ALT 18 U/L (4-34); AST 26 U/L (14-36); African American GFR (CKD) >90 (>60 ml/min/1.73 sqM); Albumin 4.7 g/dL (3.5-5.0); Alkaline Phosphatase 56 U/L (38-126); Amylase 68 U/L (30-110); Anion Gap 12 mmol/L; Blood Urea Nitrogen 17 mg/dL (7-17); Calcium 9.3 mg/dL (8.4-10.2); Carbon Dioxide 26 mmol/L (22-30); Chloride 100 mmol/L (98-107); Glucose 86 mg/dL (74-99); Lipase 53 U/L (23-300); Non-African American GFR(CKD) >90 (>60 ml/min/1.73 sqM); Potassium 4.2 mmol/L (3.5-5.1); Sodium 138 mmol/L (137-145); Total Bilirubin 0.6 mg/dL (0.2-1.3); Total Protein 7.1 g/dL (6.3-8.2)
[2022-01-03 12:13] LABS: Appearance,Urine Clear (Clear); Bilirubin,Urine Negative (Negative); Blood,Urine Negative (Negative); Color,Urine Yellow; Glucose,Urine (UA) Negative (Negative); Ketones,Urine Negative (Negative); Leukocyte Esterase,Urine Negative (Negative); Nitrite,Urine Negative (Negative); Protein,Urine Negative (Negative); Specific Gravity,Urine 1.023 (1.001-1.035); Urobilinogen,Urine <2.0 mg/dL (<2.0)
--- NOTE | 2022-01-03 12:18 | ED ---
Abdominal Pain HPI - General Chief Complaint: Abdominal Pain Stated Complaint: Salmonella Time Seen by Provider: 01/03/22 10:31 Source: patient, RN notes reviewed Mode of arrival: ambulatory Limitations: no limitations - History of Present Illness Initial Comments: 36-year-old female presents emergency dept with chief complaint of nausea vomiting diarrhea. Patient states that symptoms started this morning abruptly after eating. Patient denies any localized abdominal pain patient had a prior hysterectomy no dysuria patient states she has loose watery diarrhea, bilious emesis. Patient denies fevers chills no chest pain or shortness breath. - Related Data Home Medications Medication Instructions Recorded Confirmed Montelukast Sodium 10 mg PO HS 12/08/15 08/14/20 Albuterol Sulfate [Proair Hfa] 2 puff INHALATION RT-Q4H PRN 06/19/20 08/14/20 Fluticasone Propion/Salmeterol 1 puff INHALATION RT-BID 06/19/20 08/14/20 [Fluticasone-Salmeterol 113-14] Ipratropium-Albuterol Nebulize 3 ml INHALATION RT-QID PRN 06/19/20 08/14/20 [Duoneb 0.5 mg-3 mg/3 ml Soln] Xolair (Unknown Dose) 1 dose SQ QMONTHLY 07/09/20 08/14/20 Cholecalciferol [Vitamin D3 (25 25 mcg PO DAILY 08/14/20 08/14/20 Mcg = 1000 Iu)] Multivitamins, Thera [Multivitamin 1 tab PO DAILY 08/14/20 08/14/20 (formulary)] Previous Rx's Medication Instructions Recorded dexAMETHasone [Decadron] 6 mg PO DAILY #7 tablet 03/23/21 Cyclobenzaprine [Flexeril] 5 mg PO TID PRN #9 tablet 07/07/21 Ibuprofen [Motrin] 600 mg PO Q8HR PRN #24 tab 07/07/21 Ondansetron Odt [Zofran Odt] 4 mg PO Q8HR PRN #14 tab 01/03/22 Allergies Allergy/AdvReac Type Severity Reaction Status Date / Time acetaminophen [From Tylenol] Allergy Swelling Verified 01/03/22 10:31 sulfamethoxazole Allergy Rash/Hives Verified 01/03/22 10:31 [From Bactrim] trimethoprim [From Bactrim] Allergy Rash/Hives Verified 01/03/22 10:31 Review of Systems ROS Statement: Those systems with pertinent positive or pertinent negative responses have been documented in the HPI. ROS Other: All systems not noted in ROS Statement are negative. Past Medical History Past Medical History: Asthma Additional Past Medical History / Comment(s): constipation History of Any Multi-Drug Resistant Organisms: None Reported Past Surgical History: Section, Hysterectomy, Tubal Ligation Additional Past Surgical History / Comment(s): skin graft Past Anesthesia/Blood Transfusion Reactions: Motion Sickness, Postoperative Nausea & Vomiting (PONV) Past Psychological History: Anxiety Smoking Status: Never smoker Past Alcohol Use History: Occasional Past Drug Use History: Marijuana General Exam Limitations: no limitations General appearance: alert, in no apparent distress Head exam: Present: atraumatic, normocephalic, normal inspection Eye exam: Present: normal appearance, PERRL, EOMI. Absent: scleral icterus, conjunctival injection, periorbital swelling ENT exam: Present: normal exam, mucous membranes moist Respiratory exam: Present: normal lung sounds bilaterally. Absent: respiratory distress, wheezes, rales, rhonchi, stridor Cardiovascular Exam: Present: regular rate, normal rhythm, normal heart sounds. Absent: systolic murmur, diastolic murmur, rubs, gallop, clicks GI/Abdominal exam: Present: soft, tenderness, normal bowel sounds. Absent: distended, guarding, rebound, rigid Course Vital Signs 01/03/22 10:27 Temperature 97.9 F Pulse Rate 85 Respiratory 18 Rate Blood Pressure 115/82 O2 Sat by Pulse 100 Oximetry Medical Decision Making - Medical Decision Making 36-year-old presented for nausea vomiting diarrhea. Patient has greatly improved after Zofran, Bentyl and antiemetics. Patient's will be discharged in stable condition return parameters discussed. - Lab Data Result diagrams: 01/03/22 11:14 01/03/22 11:14 Lab Results 01/03/22 01/03/22 01/03/22 Range/Units 11:14 11:14 11:14 WBC 6.4 (3.8-10.6) k/uL RBC 4.48 (3.80-5.40) m/uL Hgb 13.8 (11.4-16.0) gm/dL Hct 40.7 (34.0-46.0) % MCV 90.8 (80.0-100.0) fL MCH 30.7 (25.0-35.0) pg MCHC 33.8 (31.0-37.0) g/dL RDW 12.0 (11.5-15.5) % Plt Count 206 (150-450) k/uL MPV 8.2 Neutrophils % 66 % Lymphocytes % 27 % Monocytes % 4 % Eosinophils % 2 % Basophils % 0 % Neutrophils # 4.2 (1.3-7.7) k/uL Lymphocytes # 1.7 (1.0-4.8) k/uL Monocytes # 0.2 (0-1.0) k/uL Eosinophils # 0.1 (0-0.7) k/uL Basophils # 0.0 (0-0.2) k/uL Sodium 138 (137-145) mmol/L Potassium 4.2 (3.5-5.1) mmol/L Chloride 100 (98-107) mmol/L Carbon Dioxide 26 (22-30) mmol/L Anion Gap 12 mmol/L BUN 17 (7-17) mg/dL Creatinine 0.64 (0.52-1.04) mg/dL Est GFR (CKD-EPI)AfAm >90 (>60 ml/min/1.73 sqM) Est GFR (CKD-EPI)NonAf >90 (>60 ml/min/1.73 sqM) Glucose 86 (74-99) mg/dL Calcium 9.3 (8.4-10.2) mg/dL Total Bilirubin 0.6 (0.2-1.3) mg/dL AST 26 (14-36) U/L ALT 18 (4-34) U/L Alkaline Phosphatase 56 (38-126) U/L Total Protein 7.1 (6.3-8.2) g/dL Albumin 4.7 (3.5-5.0) g/dL Amylase 68 (30-110) U/L Lipase 53 (23-300) U/L Urine Color Yellow Urine Appearance Clear (Clear) Urine pH 7.0 (5.0-8.0) Ur Specific [place] 1.023 (1.001-1.035) Urine Protein Negative (Negative) Urine Glucose (UA) Negative (Negative) Urine Ketones Negative (Negative) Urine Blood Negative (Negative) Urine Nitrite Negative (Negative) Urine Bilirubin Negative (Negative) Urine Urobilinogen <2.0 (<2.0) mg/dL Ur Leukocyte Esterase Negative (Negative) Disposition Clinical Impression: Gastroenteritis Disposition: HOME SELF-CARE Condition: Stable Instructions (If sedation given, give patient instructions): Gastroenteritis (ED) Additional Instructions: Please return to the Emergency Department if symptoms worsen or any other concerns. Prescriptions: Ondansetron Odt [Zofran Odt] 4 mg PO Q8HR PRN #14 tab PRN Reason: Nausea Is patient prescribed a controlled substance at d/c from ED?: No Referrals: Irasema Chandler MD [Primary Care Provider] - 1-2 days Time of Disposition: 12:18
[2022-01-03 12:29] VITALS: BP 122/60; PULSE 80
== END 2022-01-03 12:29 | disposition home or self-care (01) ==
LOC: EC 10:13
DX: K52.9 Noninfective gastroenteritis and colitis, unspecified (principal); J45.909 Unspecified asthma, uncomplicated; F41.9 Anxiety disorder, unspecified; F12.90 Cannabis use, unspecified, uncomplicated; Z79.51 Long term (current) use of inhaled steroids; Z88.6 Allergy status to analgesic agent; Z88.2 Allergy status to sulfonamides; Z79.899 Other long term (current) drug therapy
CPT/HCPCS: 36415; 80053; 82150; 83690; 85025; 81003; 99284; 96372; 96374; 96375; 96361; J0500; J2405; J1885

== ENCOUNTER 2023-06-22 19:41 | Emergency (ER) | payer BC, OTHER ==
[2023-06-22 20:37] VITALS: RESP 18; TEMP 97.9
--- NOTE | 2023-06-22 21:24 | XR ---
EXAMINATION TYPE: XR shoulder complete RT DATE OF EXAM: 06/22/2023 9:20 PM CLINICAL INDICATION:Female, 37 years old with history of pain; [facility] COMPARISON: Chest radiograph 05/11/2021 TECHNIQUE: The right shoulder was examined in AP, internally rotated and scapular Y projections. FINDINGS: No evidence of acute osseous pathology, joint dislocation, or soft tissue swelling. The remaining por tions of the visualized chest are unremarkable. IMPRESSION: No acute osseous pathology.
[2023-06-22] MEDS: KETOROLAC 15 MG/ML 1 ML VIAL IM STA (21:30)
--- NOTE | 2023-06-22 22:15 | ED ---
Extremity Problem HPI - General Chief complaint: Extremity Problem,Nontraumatic Stated complaint: R shoulder pain Time Seen by Provider: 06/22/23 20:05 Source: patient Mode of arrival: ambulatory Limitations: no limitations - History of Present Illness Initial comments: 37-year-old female presents emergency department reporting right shoulder pain. 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 States that because of the lifting she has now developed pain in her right shoulder. She has difficulty raising her arm above 90 degrees. This is her dominant arm. States that she has been taking Motrin at home with only minimal improvement in her symptoms. States that she feels like the continuous work environment has not helped her situation. She denies any numbness or tingling into her hand. No elbow or wrist pain. She denies any neck pain. No other alleviating, precipitating or modifying factors - Related Data Home Medications Medication Instructions Recorded Confirmed Montelukast Sodium 10 mg PO HS 12/08/15 08/14/20 Albuterol Sulfate [Proair Hfa] 2 puff INHALATION RT-Q4H PRN 06/19/20 08/14/20 Fluticasone Propion/Salmeterol 1 puff INHALATION RT-BID 06/19/20 08/14/20 [Fluticasone-Salmeterol 113-14] Ipratropium-Albuterol Nebulize 3 ml INHALATION RT-QID PRN 06/19/20 08/14/20 [Duoneb 0.5 mg-3 mg/3 ml Soln] Xolair (Unknown Dose) 1 dose SQ QMONTHLY 07/09/20 08/14/20 Cholecalciferol [Vitamin D3 (25 25 mcg PO DAILY 08/14/20 08/14/20 Mcg = 1000 Iu)] Multivitamins, Thera [Multivitamin 1 tab PO DAILY 08/14/20 08/14/20 (formulary)] Previous Rx's Medication Instructions Recorded dexAMETHasone [Decadron] 6 mg PO DAILY #7 tablet 03/23/21 Cyclobenzaprine [Flexeril] 5 mg PO TID PRN #9 tablet 07/07/21 Ibuprofen [Motrin] 600 mg PO Q8HR PRN #24 tab 07/07/21 Ondansetron Odt [Zofran Odt] 4 mg PO Q8HR PRN #14 tab 01/03/22 Ibuprofen [Motrin] 600 mg PO Q8HR PRN #30 tab 06/22/23 methocarbamoL [Robaxin-750] 750 mg PO QID PRN #20 tab 06/22/23 Allergies Allergy/AdvReac Type Severity Reaction Status Date / Time acetaminophen [From Tylenol] Allergy Swelling Verified 06/22/23 20:07 sulfamethoxazole Allergy Rash/Hives Verified 06/22/23 20:07 [From Bactrim] trimethoprim [From Bactrim] Allergy Rash/Hives Verified 06/22/23 20:07 Review of Systems ROS Statement: Those systems with pertinent positive or pertinent negative responses have been documented in the HPI. ROS Other: All systems not noted in ROS Statement are negative. Past Medical History Past Medical History: Asthma Additional Past Medical History / Comment(s): constipation History of Any Multi-Drug Resistant Organisms: None Reported Past Surgical History: Section, Hysterectomy, Tubal Ligation Additional Past Surgical History / Comment(s): skin graft Past Anesthesia/Blood Transfusion Reactions: Motion Sickness, Postoperative Nausea & Vomiting (PONV) Past Psychological History: Anxiety Smoking Status: Never smoker Past Alcohol Use History: Occasional Past Drug Use History: Marijuana General Exam Limitations: no limitations General appearance: alert, in no apparent distress Head exam: Present: atraumatic, normocephalic, normal inspection Eye exam: Present: normal appearance, PERRL, EOMI. Absent: scleral icterus, conjunctival injection, periorbital swelling ENT exam: Present: normal exam, mucous membranes moist Neck exam: Present: normal inspection. Absent: tenderness, meningismus, lymphadenopathy Respiratory exam: Present: normal lung sounds bilaterally. Absent: respiratory distress, wheezes, rales, rhonchi, stridor Cardiovascular Exam: Present: regular rate, normal rhythm, normal heart sounds. Absent: systolic murmur, diastolic murmur, rubs, gallop, clicks GI/Abdominal exam: Present: soft, normal bowel sounds. Absent: distended, tenderness, guarding, rebound, rigid Extremities exam: Present: tenderness (Patient has tenderness to palpation of the right glenohumeral joint. She has pain with abduction and flexion above 90 degrees. She does have 2+ radial and ulnar pulses. Equal master of ceremonies strength. Compartments are soft), normal capillary refill. Absent: pedal edema, joint swelling, calf tenderness Back exam: Present: normal inspection Neurological exam: Present: alert, oriented X3, CN II-XII intact Psychiatric exam: Present: normal affect, normal mood Skin exam: Present: warm, dry, intact, normal color. Absent: rash Course Vital Signs 06/22/23 06/22/23 20:05 21:44 Temperature 97.9 F Pulse Rate 99 84 Respiratory 18 18 Rate Blood Pressure 129/87 122/76 O2 Sat by Pulse 100 100 Oximetry Medical Decision Making - Medical Decision Making Was pt. sent in by a medical professional or institution (, PA, EXECUTIVE ASST, urgent care, hospital, or jail...) When possible be specific @ -No Did you speak to anyone other than the patient for history (EMS, parent, family, police, friend...)? What history was obtained from this source @ -No Did you review nursing and triage notes (agree or disagree)? Why? @ -I reviewed and agree with nursing and triage notes Were old charts reviewed (outside hosp., previous admission, EMS record, old EKG, old radiological studies, urgent care reports/EKG's, jail records)? Report findings @ -No old charts were reviewed Differential Diagnosis (chest pain, altered mental status, abdominal pain women, abdominal pain men, vaginal bleeding, weakness, fever, dyspnea, syncope, headache, dizziness, GI bleed, back pain, seizure, CVA, palpatations, mental health, musculoskeletal)? @ -Differential Musculoskeletal Muscular strain, contusion, ligament sprain, fracture, arthritis, septic arthritis, bursitis, cellulitis, muscle spasm, nerve compression, DVT, arterial occlusion, herpes zoster, electrolyte abnormality, tumor.... This is not meant to be in all inclusive list EKG interpreted by me (3pts min.). @ -Not done X-rays interpreted by me (1pt min.). @ -Yes and demonstrates no acute issue CT interpreted by me (1pt min.). @ -None done U/S interpreted by me (1pt. min.). @ -None done What testing was considered but not performed or refused? (CT, X-rays, U/S, labs)? Why? @ -None What meds were considered but not given or refused? Why? @ -None Did you discuss the management of the patient with other professionals (professionals i.e. , PA, EXECUTIVE ASST, lab, RT, psych nurse, social media community manager, secretary bookkeeper, teacher, health promotion officer, business case analyst)? Give summary @ -No Was smoking cessation discussed for >3mins.? @ -No Was critical care preformed (if so, how long)? @ -No Were there social determinants of health that impacted care today? How? (Homelessness, low income, unemployed, alcoholism, drug addiction, transportation, low edu. Level, literacy, decrease access to med. care, detention, rehab)? @ -No Was there de-escalation of care discussed even if they declined (Discuss DNR or withdrawal of care, Hospice)? DNR status @ -No What co-morbidities impacted this encounter? (DM, HTN, Smoking, COPD, CAD, Cancer, CVA, ARF, Chemo, Hep., AIDS, mental health diagnosis, sleep apnea, morbid obesity)? @ -None Was patient admitted / discharged? Hospital course, mention meds given and route, prescriptions, significant lab abnormalities, going to OR and other pertinent info. @ -Upon arrival patient seen and evaluated in room 31. Thorough history and physical exam was performed. Patient was given a Toradol injection. X-ray was performed. Results are discussed with the patient. There is concern for rotator cuff injury or labral injury. At this time the patient will be placed on Toradol at home. She is to wear sling. She is to rest. Patient will be given a work note. No heavy lifting. Instructed to follow-up with her primary care doctor and possibly have orthopedic follow-up. Return for any new or worsening symptoms. Patient agreeable to plan was discharged in stable condition Undiagnosed new problem with uncertain prognosis? @ -Yes Drug Therapy requiring intensive monitoring for toxicity (Heparin, Nitro, Insulin, Cardizem)? @ -No Were any procedures done? @ -No Diagnosis/symptom? @ -Acute right shoulder pain, acute right shoulder strain Acute, or Chronic, or Acute on Chronic? @ -Acute Uncomplicated (without systemic symptoms) or Complicated (systemic symptoms)? @ -Complicated Side effects of treatment? @ -No Exacerbation, Progression, or Severe Exacerbation? @ -No Poses a threat to life or bodily function? How? (Chest pain, [place], MA, pneumonia, PE, COPD, DKA, ARF, appy, cholecystitis, CVA, Diverticulitis, Homicidal, Suicidal, threat to staff... and all critical care pts) @ -No Disposition Clinical Impression: Right shoulder pain Disposition: HOME SELF-CARE Condition: Stable Instructions (If sedation given, give patient instructions): Shoulder Pain (ED) Additional Instructions: Please rest the right arm. Place warm compresses to the site. Alternate taking the Motrin and Robaxin. Follow-up with the orthopedic office for further imaging and return for any new or worsening symptoms Prescriptions: Ibuprofen [Motrin] 600 mg PO Q8HR PRN #30 tab PRN Reason: Pain methocarbamoL [Robaxin-750] 750 mg PO QID PRN #20 tab PRN Reason: Muscle Spasm Is patient prescribed a controlled substance at d/c from ED?: No Referrals: Irasema Chandler MD [Primary Care Provider] - 1-2 days Ginna Barth DO [Doctor of Osteopathic Medicine] - 1-2 days Time of Disposition: 22:15
[2023-06-22 22:35] VITALS: BP 122/76; PULSE 84
== END 2023-06-22 22:45 | disposition home or self-care (01) ==
LOC: EC 19:41
DX: M25.511 Pain in right shoulder (principal); F12.90 Cannabis use, unspecified, uncomplicated; Z88.2 Allergy status to sulfonamides; Z88.1 Allergy status to other antibiotic agents; Z88.8 Allergy status to other drugs, medicaments and biological substances
CPT/HCPCS: 73030; 99283; 96372; J1885

== ENCOUNTER 2023-11-20 15:55 | Emergency (ER) | payer BC ==
[2023-11-20 16:09] VITALS: TEMP 98.7
--- NOTE | 2023-11-20 16:31 | ED ---
Headache HPI - General Source: patient, RN notes reviewed Mode of arrival: wheelchair Limitations: no limitations <Jessica Colindres - Last Filed: 11/20/23 16:31> - History of Present Illness MD Complaint: headache Onset/Timin -: days(s) Onset Description: sudden Location: occipital Severity: severe Quality: aching Consistency: constant Improves With: nothing Worsens With: light, noise Context: occurred at rest Other Symptoms: cough Treatments Prior to Arrival: Ibuprofen <Demetri Turner - Last Filed: 11/21/23 07:02> - General Chief Complaint: Headache Stated Complaint: Severe headaches Time Seen by Provider: 11/20/23 16:31 - History of Present Illness Initial Comments: Quick note: 38-year-old female presented to the ER with a chief complaint of headache. Patient states she woke up with this headache around 8 AM. Admits to nausea and a dry cough. No visual disturbances. Admits to hot flashes. No history of headaches. Has tried [id number] Robitussin, ibuprofen and Benadryl without relief. (Jessica Colindres) Patient is a 38-year-old woman who presents to evaluation for worst headache of life that had come on earlier today. She did try ibuprofen with very minimal improvement. Also complains of some nasal congestion. Has not noted fever, neck stiffness, neurologic symptoms. (Demetri Turner) - Related Data Home Medications Medication Instructions Recorded Confirmed Montelukast Sodium 10 mg PO HS 12/08/15 08/14/20 Albuterol Sulfate [Proair Hfa] 2 puff INHALATION RT-Q4H PRN 06/19/20 08/14/20 Fluticasone Propion/Salmeterol 1 puff INHALATION RT-BID 06/19/20 08/14/20 [Fluticasone-Salmeterol 113-14] Ipratropium-Albuterol Nebulize 3 ml INHALATION RT-QID PRN 06/19/20 08/14/20 [Duoneb 0.5 mg-3 mg/3 ml Soln] Xolair (Unknown Dose) 1 dose SQ QMONTHLY 07/09/20 08/14/20 Cholecalciferol [Vitamin D3 (25 25 mcg PO DAILY 08/14/20 08/14/20 Mcg = 1000 Iu)] Multivitamins, Thera [Multivitamin 1 tab PO DAILY 08/14/20 08/14/20 (formulary)] Previous Rx's Medication Instructions Recorded dexAMETHasone [Decadron] 6 mg PO DAILY #7 tablet 03/23/21 Cyclobenzaprine [Flexeril] 5 mg PO TID PRN #9 tablet 07/07/21 Ibuprofen [Motrin] 600 mg PO Q8HR PRN #24 tab 07/07/21 Ondansetron Odt [Zofran Odt] 4 mg PO Q8HR PRN #14 tab 01/03/22 Ibuprofen [Motrin] 600 mg PO Q8HR PRN #30 tab 06/22/23 methocarbamoL [Robaxin-750] 750 mg PO QID PRN #20 tab 06/22/23 traMADol HCl [Ultram] 50 mg PO Q6H PRN #20 tab 11/20/23 Allergies Allergy/AdvReac Type Severity Reaction Status Date / Time acetaminophen [From Tylenol] Allergy Swelling Verified 11/20/23 16:08 sulfamethoxazole Allergy Rash/Hives Verified 11/20/23 16:08 [From Bactrim] trimethoprim [From Bactrim] Allergy Rash/Hives Verified 11/20/23 16:08 Review of Systems ROS Other: All systems not noted in ROS Statement are negative. <Jessica Colindres - Last Filed: 11/20/23 16:31> ROS Other: All systems not noted in ROS Statement are negative. Constitutional: Denies: fever, chills, weakness Eyes: Denies: eye pain, vision change ENT: Reports: congestion. Denies: ear pain, hearing loss Respiratory: Denies: cough, dyspnea Cardiovascular: Denies: chest pain, palpitations Gastrointestinal: Reports: nausea. Denies: abdominal pain, vomiting, diarrhea Genitourinary: Denies: dysuria, hematuria Musculoskeletal: Denies: back pain Skin: Denies: rash Neurological: Reports: headache. Denies: weakness, numbness, confusion, abnormal gait <Demetri Turner - Last Filed: 11/21/23 07:02> ROS Statement: Those systems with pertinent positive or pertinent negative responses have been documented in the HPI. Past Medical History Past Medical History: Asthma Additional Past Medical History / Comment(s): constipation History of Any Multi-Drug Resistant Organisms: None Reported Past Surgical History: Section, Hysterectomy, Tubal Ligation Additional Past Surgical History / Comment(s): skin graft Past Anesthesia/Blood Transfusion Reactions: Motion Sickness, Postoperative Nausea & Vomiting (PONV) Past Psychological History: Anxiety Smoking Status: Never smoker Past Alcohol Use History: Occasional Past Drug Use History: Marijuana <Jessica Colindres - Last Filed: 11/20/23 16:31> General Exam Limitations: no limitations <Jessica Colindres - Last Filed: 11/20/23 16:31> Limitations: no limitations General appearance: alert, in no apparent distress Head exam: Present: atraumatic, normocephalic Eye exam: Present: normal appearance, PERRL, EOMI. Absent: scleral icterus, conjunctival injection, nystagmus ENT exam: Present: normal oropharynx Neck exam: Present: normal inspection, full ROM. Absent: tenderness, meningismus Respiratory exam: Present: normal lung sounds bilaterally. Absent: respiratory distress, wheezes, rales, rhonchi, stridor, accessory muscle use Cardiovascular Exam: Present: regular rate, normal rhythm, normal heart sounds. Absent: systolic murmur, diastolic murmur, rubs, gallop GI/Abdominal exam: Present: soft. Absent: distended, tenderness, guarding, rebound, rigid Extremities exam: Present: normal inspection, normal capillary refill. Absent: pedal edema, calf tenderness Back exam: Present: normal inspection Neurological exam: Present: alert, oriented X3, CN II-XII intact. Absent: motor sensory deficit Skin exam: Present: warm, dry, intact, normal color. Absent: rash <Demetri Turner - Last Filed: 11/21/23 07:02> - General Exam Comments Initial Comments: Visual Physical Exam Vital signs reviewed General: Well-appearing, nontoxic, no acute distress. Head: Normocephalic, atraumatic Eyes: PERRLA, EOMI ENT: Airway patent Chest: Nonlabored breathing Skin: No visual rash, normal skin tone Neuro: Alert and oriented 3 Musculoskeletal: No gross abnormalities (Jessica Colindres) Course Vital Signs 11/20/23 11/20/23 11/20/23 16:06 18:49 20:21 Temperature 98.7 F Pulse Rate 106 H 95 105 H Respiratory 16 20 16 Rate Blood Pressure 145/91 128/86 123/90 O2 Sat by Pulse 100 100 99 Oximetry Medical Decision Making <Jessica Colindres - Last Filed: 11/20/23 16:31> <YueDemetri - Last Filed: 11/21/23 07:02> - Medical Decision Making I performed the quick note portion of this chart. Electronically signed by Jessica Colindres PA-C (Jessica Colindres) Given that this is the patient's worst headache of life, she was sent for CT to rule out subarachnoid hemorrhage. I interpreted the CT scan is negative for acute bony injury, negative for acute intracranial hemorrhage. Was pt. sent in by a medical professional or institution (, [facility], HEALTH ADMINISTRATION TEACHER, urgent care, hospital, or retirement...) When possible be specific @ -[No] Did you speak to anyone other than the patient for history (EMS, parent, family, police, friend...)? What history was obtained from this source @ -[No] Did you review nursing and triage notes (agree or disagree)? Why? @ -[I reviewed and agree with nursing and triage notes] Were old charts reviewed (outside hosp., previous admission, EMS record, old EKG , old radiological studies, urgent care reports/EKG's, retirement records)? Report findings @ -[No old charts were reviewed] Differential Diagnosis (chest pain, altered mental status, abdominal pain women, abdominal pain men, vaginal bleeding, weakness, fever, dyspnea, syncope, headache, dizziness, GI bleed, back pain, seizure, CVA, palpatations, mental health, musculoskeletal)? @ -[Differential Headache: Migraine, tension, cluster, carbon monoxide, central venous thrombosis, pension karma temporal arteritis, acute closure glaucoma, intercranial hemorrhage, mastoiditis, sinusitis, head injury, this is not meant to be an all-inclusive list. EKG interpreted by me (3pts min.). @ -[As above] X-rays interpreted by me (1pt min.). @ -[None done] CT interpreted by me (1pt min.). @ -[I interpreted as above U/S interpreted by me (1pt. min.). @ -[None done] What testing was considered but not performed or refused? (CT, X-rays, U/S, labs)? Why? @ -[None] What meds were considered but not given or refused? Why? @ -[None] Did you discuss the management of the patient with other professionals (professionals i.e. , PA, HEALTH ADMINISTRATION TEACHER, lab, RT, psych nurse, family welfare social work professor, tipping machine operator, teacher, media liaison officer, case finisher)? Give summary @ -[No] Was smoking cessation discussed for >3mins.? @ -[No] Was critical care preformed (if so, how long)? @ -[No] Were there social determinants of health that impacted care today? How? (Homelessness, low income, unemployed, alcoholism, drug addiction, transportation, low edu. Level, literacy, decrease access to med. care, snf, rehab)? @ -[No] Was there de-escalation of care discussed even if they declined (Discuss DNR or withdrawal of care, Hospice)? DNR status @ -[No] What co-morbidities impacted this encounter? (DM, HTN, Smoking, COPD, CAD, Can cer, CVA, ARF, Chemo, Hep., AIDS, mental health diagnosis, sleep apnea, morbid obesity)? @ -[None] Was patient admitted / discharged? Hospital course, mention meds given and route, prescriptions, significant lab abnormalities, going to OR and other pertinent info. @ -[Patient did have some improvement with symptoms. She is found to be COVID- positive. Discussed further care and follow-up as well as return parameters. Undiagnosed new problem with uncertain prognosis? @ -[No] Drug Therapy requiring intensive monitoring for toxicity (Heparin, Nitro, Insulin, Cardizem)? @ -[No] Were any procedures done? @ -[No] Diagnosis/symptom? @ -[Acute headache COVID-19 infection Acute, or Chronic, or Acute on Chronic? @ -[Acute Uncomplicated (without systemic symptoms) or Complicated (systemic symptoms)? @ -[Uncomplicated Side effects of treatment? @ -[No] Exacerbation, Progression, or Severe Exacerbation? @ -[No] Poses a threat to life or bodily function? How? (Chest pain, [place], [place], pneumonia, PE, COPD, DKA, ARF, appy, cholecystitis, CVA, Diverticulitis, Homicidal, Suicidal, threat to staff... and all critical care pts) @ -[Low risk of threat to life at this point (Demetri Turner) - Lab Data Lab Results 11/20/23 Range/Units 17:18 Influenza Type A (PCR) Not Detected (Not Detectd) Influenza Type B (PCR) Not Detected (Not Detectd) RSV (PCR) Not Detected (Not Detectd) SARS-CoV-2 (PCR) Detected A (Not Detectd) Disposition <Jessica Colindres - Last Filed: 11/20/23 16:31> Is patient prescribed a controlled substance at d/c from ED?: No <Demetri Turner - Last Filed: 11/21/23 07:02> Clinical Impression: COVID-19, Headache Disposition: HOME SELF-CARE Condition: Good Instructions (If sedation given, give patient instructions): Acute Headache (ED), COVID-19 (Coronavirus Disease 2019) (ED) Prescriptions: traMADol HCl [Ultram] 50 mg PO Q6H PRN #20 tab PRN Reason: Pain Referrals: Iarsema Chandler MD [Primary Care Provider] - 1-2 days
[2023-11-20] MEDS: METOCLOPRAMIDE 5 MG/ML 2 ML VIAL IM STA (18:43)
[2023-11-20] MEDS: SUMAtriptan succinate 6 MG/0.5 ML VIAL SQ STA (18:48)
--- NOTE | 2023-11-20 19:32 | CT ---
EXAMINATION TYPE: CT brain wo con CT DLP: 1051.4 mGycm, Automated exposure control for dose reduction was used. DATE OF EXAM: 11/20/2023 7:15 PM COMPARISON: None. CLINICAL INDICATION: Female, 38 years old with history of Worst headache of life, Worst headache of l jeyson. TECHNIQUE: Brain: Axial CT images of the brain were obtained with coronal and sagittal reformats created and rev iewed. Contrast used: None. Oral contrast used: None. FINDINGS: Brain: Extra-axial spaces: No abnormal extra-axial fluid collections. Ventricular system: Within normal limits Cerebral parenchyma: No acute intraparenchymal hemorrhage or mass effect. The weaver-white junction is well differentiated. Cerebellum: Unremarkable. Mass effect: No evidence of midline shift. Intracranial vasculature: unremarkable Soft tissues: Normal. Calvarium/osseous structures: No depressed skull fracture. Paranasal sinuses and mastoid air cells: Mild scattered paranasal sinus disease. Visualized orbits: Orbital contents are intact. IMPRESSION: No acute intracranial process. [facility], , 11/20/2023 7:30 PM
[2023-11-20 20:22] VITALS: BP 123/90; PULSE 105; RESP 16
== END 2023-11-20 20:22 | disposition home or self-care (01) ==
LOC: EC 15:55
CPT/HCPCS: 70450; 87636; 96372; 99284

== ENCOUNTER 2024-03-11 08:25 | Emergency (ER) | payer BC, OTHER ==
[2024-03-11] MEDS: IPRATROPIUM-ALBUTEROL 3 ML NEB INHALATION STA (08:44)
--- NOTE | 2024-03-11 09:09 | XR ---
EXAMINATION TYPE: XR chest 2V DATE OF EXAM: 03/11/2024 9:04 AM COMPARISON: Chest x-ray March 23, 2021 CLINICAL INDICATION: Female, 38 years old with history of sob, asthma attack. TECHNIQUE: Frontal and lateral views of the chest are obtained. FINDINGS: There is no focal air space opacity, pleural effusion, or pneumothorax seen. The cardiac silhouette size remains within normal limits. The osseous structures are intact. IMPRESSION: No acute pulmonary infiltrate. [facility], , 03/11/2024 9:07 AM
--- NOTE | 2024-03-11 09:20 | ED ---
General Adult HPI - General Chief complaint: Shortness of Breath Stated complaint: ASTHMA ATTACK Time Seen by Provider: 03/11/24 08:37 Source: patient, RN notes reviewed Mode of arrival: wheelchair Limitations: no limitations - History of Present Illness Initial comments: 38-year-old female presents emergency department complaint of asthma issues. Patient states she is out of her trilogy. Patient states that this is only inhaler that she uses and states only helps. She states she has been out for 30 days. She complains of tightness in her chest and back states she had increasing cough, wheezing. She had a difficulty swallowing difficulty ambulating. She states she has no chest pain as noted under constipation no leg pain or leg swelling denies fevers - Related Data Home Medications Medication Instructions Recorded Confirmed Montelukast Sodium 10 mg PO HS 12/08/15 08/14/20 Albuterol Sulfate [Proair Hfa] 2 puff INHALATION RT-Q4H PRN 06/19/20 08/14/20 Fluticasone Propion/Salmeterol 1 puff INHALATION RT-BID 06/19/20 08/14/20 [Fluticasone-Salmeterol 113-14] Ipratropium-Albuterol Nebulize 3 ml INHALATION RT-QID PRN 06/19/20 08/14/20 [Duoneb 0.5 mg-3 mg/3 ml Soln] Xolair (Unknown Dose) 1 dose SQ QMONTHLY 07/09/20 08/14/20 Cholecalciferol [Vitamin D3 (25 25 mcg PO DAILY 08/14/20 08/14/20 Mcg = 1000 Iu)] Multivitamins, Thera [Multivitamin 1 tab PO DAILY 08/14/20 08/14/20 (formulary)] Previous Rx's Medication Instructions Recorded dexAMETHasone [Decadron] 6 mg PO DAILY #7 tablet 03/23/21 Cyclobenzaprine [Flexeril] 5 mg PO TID PRN #9 tablet 07/07/21 Ibuprofen [Motrin] 600 mg PO Q8HR PRN #24 tab 07/07/21 Ondansetron Odt [Zofran Odt] 4 mg PO Q8HR PRN #14 tab 01/03/22 Ibuprofen [Motrin] 600 mg PO Q8HR PRN #30 tab 06/22/23 methocarbamoL [Robaxin-750] 750 mg PO QID PRN #20 tab 06/22/23 traMADol HCl [Ultram] 50 mg PO Q6H PRN #20 tab 11/20/23 Albuterol Inhaler [Ventolin Hfa 1 - 2 puff INHALATION Q6H PRN #1 03/11/24 Inhaler] each Albuterol Nebulized [Ventolin 2.5 mg INHALATION Q4H PRN #75 ml 03/11/24 Nebulized] Fluticasone/Vilanterol [Breo 1 inhalation INHALATION DAILY #1 03/11/24 Ellipta 200-25 Mcg Inhaler] dispenser predniSONE 50 mg PO DAILY #5 tab 03/11/24 Allergies Allergy/AdvReac Type Severity Reaction Status Date / Time acetaminophen [From Tylenol] Allergy Swelling Verified 03/11/24 08:35 sulfamethoxazole Allergy Rash/Hives Verified 03/11/24 08:35 [From Bactrim] trimethoprim [From Bactrim] Allergy Rash/Hives Verified 03/11/24 08:35 Review of Systems ROS Statement: Those systems with pertinent positive or pertinent negative responses have been documented in the HPI. ROS Other: All systems not noted in ROS Statement are negative. Past Medical History Past Medical History: Asthma Additional Past Medical History / Comment(s): constipation History of Any Multi-Drug Resistant Organisms: None Reported Past Surgical History: Section, Hysterectomy, Tubal Ligation Additional Past Surgical History / Comment(s): skin graft Past Anesthesia/Blood Transfusion Reactions: Motion Sickness, Postoperative Nausea & Vomiting (PONV) Past Psychological History: Anxiety Smoking Status: Never smoker Past Alcohol Use History: Occasional Past Drug Use History: Marijuana General Exam Limitations: no limitations General appearance: alert, in no apparent distress Head exam: Present: atraumatic, normocephalic, normal inspection Eye exam: Present: normal appearance, PERRL, EOMI. Absent: scleral icterus, conjunctival injection, periorbital swelling ENT exam: Present: normal exam, mucous membranes moist Neck exam: Present: normal inspection. Absent: tenderness, meningismus, lymphadenopathy Respiratory exam: Present: wheezes. Absent: normal lung sounds bilaterally, respiratory distress, rales, rhonchi, stridor Cardiovascular Exam: Present: normal rhythm, tachycardia, normal heart sounds. Absent: systolic murmur, diastolic murmur, rubs, gallop, clicks Course Vital Signs 03/11/24 03/11/24 03/11/24 08:32 08:35 08:38 Temperature 98 F Pulse Rate 102 H Respiratory 24 24 Rate Blood Pressure 117/67 O2 Sat by Pulse 100 Oximetry 03/11/24 03/11/24 03/11/24 08:44 08:59 09:17 Temperature 98.1 F Pulse Rate 98 95 103 H Respiratory 18 Rate Blood Pressure 120/72 O2 Sat by Pulse 100 Oximetry 03/11/24 09:33 Temperature 97.9 F Pulse Rate 100 Respiratory 18 Rate Blood Pressure 122/74 O2 Sat by Pulse 99 Oximetry Medical Decision Making - Medical Decision Making Was pt. sent in by a medical professional or institution (, PA, HEATER PLANER OPERATOR, urgent care, hospital, or half-way...) When possible be specific @ -No Did you speak to anyone other than the patient for history (EMS, parent, family, police, friend...)? What history was obtained from this source @ -No Did you review nursing and triage notes (agree or disagree)? Why? @ -I reviewed and agree with nursing and triage notes Were old charts reviewed (outside hosp., previous admission, EMS record, old EKG, old radiological studies, urgent care reports/EKG's, half-way records)? Report findings @ -No old charts were reviewed Differential Diagnosis (chest pain, altered mental status, abdominal pain women, abdominal pain men, vaginal bleeding, weakness, fever, dyspnea, syncope, headache, dizziness, GI bleed, back pain, seizure, CVA, palpatations, mental health, musculoskeletal)? @ -Differential Dyspnea: Coronary syndrome, arrhythmia, tamponade, asthma, COPD, pulmonary embolism, pneumonia, pneumothorax, pulmonary effusion, anaphylaxis, diabetic ketoacidosis, flailed chest, pulmonary contusion, diaphragmatic rupture, anemia, neuromuscular, this is not meant to be an all-inclusive list. EKG interpreted by me (3pts min.). @ -None X-rays interpreted by me (1pt min.). @ -Chest x-ray shows no acute cardiopulmonary process CT interpreted by me (1pt min.). @ -None done U/S interpreted by me (1pt. min.). @ -None done What testing was considered but not performed or refused? (CT, X-rays, U/S, labs)? Why? @ -None What meds were considered but not given or refused? Why? @ -None Did you discuss the management of the patient with other professionals (professionals i.e. , PA, HEATER PLANER OPERATOR, lab, RT, psych nurse, healthcare social worker, ore storage drier, teacher, evp and chief operating officer, case planner)? Give summary @ -No Was smoking cessation discussed for >3mins.? @ -No Was critical care preformed (if so, how long)? @ -No Were there social determinants of health that impacted care today? How? (Homelessness, low income, unemployed, alcoholism, drug addiction, transportation, low edu. Level, literacy, decrease access to med. care, correction, rehab)? @ -No Was there de-escalation of care discussed even if they declined (Discuss DNR or withdrawal of care, Hospice)? DNR status @ -No What co-morbidities impacted this encounter? (DM, HTN, Smoking, COPD, CAD, Cancer, CVA, ARF, Chemo, Hep., AIDS, mental health diagnosis, sleep apnea, morbid obesity)? @ -Asthma Was patient admitted / discharged? Hospital course, mention meds given and route, prescriptions, significant lab abnormalities, going to OR and other pertinent info. @ -Charge patient felt greatly proved after DuoNeb treatment. Patient was given refill of inhaler, DuoNeb treatments, prescription for prednisone and she was requesting Dulera as she does not have current insurance to cover her Trelegy Undiagnosed new problem with uncertain prognosis? @ -No Drug Therapy requiring intensive monitoring for toxicity (Heparin, Nitro, Insulin, Cardizem)? @ -No Were any procedures done? @ -No Diagnosis/symptom? @ -Asthma acute exacerbation Acute, or Chronic, or Acute on Chronic? @ -Acute Uncomplicated (without systemic symptoms) or Complicated (systemic symptoms)? @ -Complicated Side effects of treatment? @ -No Exacerbation, Progression, or Severe Exacerbation? @ -Exacerbation Poses a threat to life or bodily function? How? (Chest pain, [place], [place], pneumonia, PE, COPD, DKA, ARF, appy, cholecystitis, CVA, Diverticulitis, Homicidal, Suicidal, threat to staff... and all critical care pts) @ -No Disposition Clinical Impression: Asthma exacerbation Disposition: HOME SELF-CARE Condition: Stable Instructions (If sedation given, give patient instructions): Asthma (ED) Additional Instructions: Please return to the Emergency Department if symptoms worsen or any other concerns. Prescriptions: Fluticasone/Vilanterol [Breo Ellipta 200-25 Mcg Inhaler] 1 inhalation INHALATION DAILY #1 dispenser predniSONE 50 mg PO DAILY #5 tab Albuterol Inhaler [Ventolin Hfa Inhaler] 1 - 2 puff INHALATION Q6H PRN #1 each PRN Reason: Shortness Of Breath Albuterol Nebulized [Ventolin Nebulized] 2.5 mg INHALATION Q4H PRN #75 ml PRN Reason: difficulty in breathing Is patient prescribed a controlled substance at d/c from ED?: No Referrals: None,Stated [Primary Care Provider] - 1-2 days Time of Disposition: 09:27
[2024-03-11 09:37] VITALS: BP 122/74; PULSE 100; RESP 18; TEMP 97.9
== END 2024-03-11 09:35 | disposition home or self-care (01) ==
LOC: EC 08:25
DX: J45.901 Unspecified asthma with (acute) exacerbation (principal); Z88.1 Allergy status to other antibiotic agents; Z88.2 Allergy status to sulfonamides; Z88.6 Allergy status to analgesic agent
CPT/HCPCS: 71046; 94640; 99285

== ENCOUNTER → 2024-10-03 | Outpatient (CLI) | payer OTHER ==
--- NOTE | 2024-10-03 09:20 | US ---
EXAMINATION TYPE: US thyroid st tissue head/neck DATE OF EXAM: 10/03/2024 COMPARISON: CT soft tissue neck 09/22/2019 CLINICAL INDICATION: Female, 38 years old with history of E04.1 THYROID NODULE; fullness in neck, dif ficulty swallowing TECHNIQUE: Grayscale and color Doppler imaging of the thyroid gland. FINDINGS: GLAND SIZE: Right Lobe: 4.4 x 1.1 x 1.7 cm Overall Parenchyma: homogeneous Left Lobe: 4.5 x 1.2 x 1.2 cm Overall Parenchyma: homogeneous Isthmus Thickness: 0.2 cm NODULES RIGHT: # of nodules measured on right: 1 1. 0.9 X 0.7 x 0.8 cm, mid, mixed cystic and solid, anechoic nodule, which is wider than tall, with smooth margins, without echogenic foci. TR 1 Prior size: no previous LEFT: # of nodules measured on left: 0 ISTHMUS: # of nodules measured in the isthmus: 0 Bilateral neck scanned, no evidence of lymphadenopathy. IMPRESSION: Normal-sized thyroid gland with right thyroid lobe subcentimeter TR 1 nodule. Highest TI-RADS level nodule reported: ACR TI-RADS LEVEL: TI-RADS 1 - BENIGN: No FNA TI-RADS assessment score and recommendation for follow-up based on appropriate scoring and treatment protocols. TR1 Benign No FNA TR2 Not suspicious No FNA TR3: If nodule size is ? 2.5 cm, FNA is recommended. If nodule size is ? 1.5 cm, follow-up imaging at 1, 3, and 5 years is recommended. TR4: If nodule size is ? 1.5 cm, FNA is recommended. If nodule size is ? 1.0 cm, follow-up imaging at 1, 2, 3, and 5 years is recommended. TR5: If nodule size is ? 1.0 cm, FNA is recommended. If nodule size is ? 0.5 cm, annual follow-up for up to 5 years is recommended. TR 1 thyroid nodules have a 0.3 % risk of malignancy. TR 2 thyroid nodules have a 1.5 % risk of malignancy. TR 3 thyroid nodules have a 4.8 % risk of malignancy. TR 4 thyroid nodules have a 9.1 % risk of malignancy. TR 5 thyroid nodules have a 35 % risk of malignancy. [email or web address] [facility], , 10/03/2024 9:18 AM
== END | disposition home or self-care (01) ==
LOC: RADUSWWP 08:54
PROVIDERS: ATTEND Family Medicine
DX: E04.1 Nontoxic single thyroid nodule (principal)
CPT/HCPCS: 76536